=== PATIENT | female | born 1985 | race Caucasian/White ===

== ENCOUNTER 2019-04-10 20:07 | Emergency (ER) | payer OTHER, SELFPAY ==
[2019-04-10 20:16] VITALS: BP 119/78; PULSE 101; RESP 18; TEMP 36.5; O2SAT 94; BMI 36.6
[2019-04-10] MEDS: methylPREDNISolone 125 MG/2 ML VIAL IV (20:16)
[2019-04-10] MEDS: diphenhydrAMINE 50 MG/ML VIAL 25 MG IV (20:16)
[2019-04-10 20:29] VITALS: BP 119/78; PULSE 86; RESP 16; O2SAT 97
--- NOTE | 2019-04-10 20:33 | ED.ALLEREA ---
HPI - Allergic Reaction General Chief complaint: Allergic Reaction Stated complaint: Allergic Reation/swollen mouth and tongue Time Seen by Provider: 04/10/19 20:09 Source: patient Mode of arrival: ambulatory Limitations: no limitations History of Present Illness HPI narrative: Patient comes emergency department complaining of tongue swelling after shrimp exposure. Patient states that she when out to dinner and started eating shrimp and steak about an hour ago, he in about 30 minutes ago, began to notice that her tongue was swelling. She states that she went to the gas station and got some Benadryl, and tried to swallow with Gatorade, but found hard to swallow. Patient was eventually able to get the Benadryl down, and states that the swelling has not worsened since then, but has not improved, either. Patient denies rash or itching. She states she has been told she has an allergy to penicillin, but does not ever remember being exposed to it. She states she has been exposed to shrimp multiple times, and has usually been fine. However, the last time she had shrimp before this, she noticed a slight tingling in her mouth and tongue afterward. However at that time, she did not have any swelling. Related Data Previous Rx's Medication Instructions Recorded epinephrine [EpiPen] 0.3 mg IM Q15M PRN #1 each 04/10/19 prednisone 60 mg PO DAILY #9 tab 04/10/19 Allergies Allergy/AdvReac Type Severity Reaction Status Date / Time Penicillins Allergy Verified 04/10/19 20:16 Review of Systems Review of Systems ROS Unobtainable: All systems reviewed & are unremarkable except as noted in HPI and below Constitutional Constitutional: Denies chills, Denies fatigue, Denies fever(s), Denies frequent falls, Denies lethargy and Denies weakness Eyes Eyes: Denies change in vision, Denies eye discharge, Denies irritation and Denies loss of vision ENT Ears, Nose, Mouth, and Throat: Denies change in voice, Denies dizziness, Denies neck pain, Denies sore throat and Denies throat swelling Comments: Tongue swelling Cardiovascular Cardiovascular: Denies chest pain, Denies irregular heart rhythm, Denies lightheadedness, Denies palpitations, Denies dyspnea, Denies dyspnea on exertion and Denies orthopnea Respiratory Respiratory: Denies cough, Denies dyspnea, Denies dyspnea on exertion and Denies wheezing Gastrointestinal Gastrointestinal: Denies abdominal pain, Denies change in bowel habits, Denies diarrhea, Denies nausea and Denies vomiting Genitourinary Genitourinary: Denies hematuria, Denies flank pain, Denies urinary incontinence and Denies urinary urgency Musculoskeletal Musculoskeletal: Denies back pain, Denies muscle weakness, Denies neck pain, Denies numbness and Denies tingling Integumentary/Breasts Skin/Breast: Denies pruritus, Denies erythema, Denies rash and Denies wounds Neurologic Neurologic: Denies behavioral changes, Denies confusion, Denies dizziness, Denies frequent falls, Denies loss of vision, Denies numbness, Denies tingling and Denies weakness Psychiatric Psychiatric: Denies anxiety, Denies behavioral changes, Denies confusion, Denies depression, Denies homicidal ideation and Denies suicidal ideation Endocrine Endocrine: Denies fatigue, Denies flushing and Denies palpitations Hematologic/Lymphatic Hematologic/Lymphatic: Denies easy bruising Allergic/Immunologic Allergic/Immunologic: Denies urticaria, Denies throat swelling and Denies wheezing [facility] Medical History Healthy adult (Acute) Surgical History No pertinent past surgical history (Acute) Social History Smoking Status: Never smoker Social History Smoking Status: Never smoker Exam Narrative Exam Narrative: Moderate edema of tongue. No facial edema. No pharyngeal edema. Initial Vital Signs Initial Vital Signs: Vital Signs Temperature 97.7 F 04/10/19 20:16 Pulse Rate 101 H 04/10/19 20:16 Respiratory Rate 18 04/10/19 20:16 Blood Pressure 119/78 04/10/19 20:16 Pulse Oximetry 94 04/10/19 20:16 Const General: cooperative and well developed Nutritional Appearance: well nourished Orientation: alert, awake, oriented x3 and not confused HENMT Head: normocephalic and atraumatic Ears: TM's normal bilaterally Nose: external nose normal and No nasal discharge Face and sinus: face symmetric and No dry mucous membranes Mouth: oral mucosae normal and moist mucous membranes Teeth and gingiva: dentition normal Eyes General: appearance normal, both eyes and all related structures Eyelids: eyelids normal Conjunctivae: conjunctivae normal Sclera: sclerae normal Pupils: PERRL EOM: EOM intact bilaterally Neck Neck: normal visual inspection, trachea midline, No lymphadenopathy, No midline deformity and No JVD Lymphatic: No lymphedema Chest Chest: normal inspection of the chest Resp Effort & Inspection: normal respiratory effort, able to speak in complete sentences, no respiratory distress and no use of accessory muscles Auscultation: clear to auscultation bilaterally, no rales, no rhonchi and no wheezes Cardio Rate: regular rate Rhythm: regular rhythm Heart Sounds: no click, no gallops, no murmurs and no rubs Pulses: normal peripheral pulses GI Inspection: non-distended Palpation: soft, no hepatosplenomegaly, No guarding, No pulsatile mass and No tender Auscultation: normal bowel sounds Back/Spine/Pelvis Back: No CVA tenderness Cervical Spine: cervical ROM normal and No pain with cervical ROM Thoracic/Lumbar Spine: thoracic and lumbar spine normal to inspection Skin General: no rashes or lesions noted, No jaundice and No petechiae Other: No urticaria. Neuro General: alert, oriented x3, gait normal and no focal motor deficits Speech: speech normal Extrem General: full ROM, no clubbing, cyanosis or edema, no pedal edema and no calf tenderness Psych Appearance: well kempt Mental Status: mental status grossly normal Attitude: cooperative Thought Content: normal and suicidality Judgment: judgment good Course Course Course Narrative: Patient was evaluated immediately upon arrival in the emergency department. She was given IV Benadryl, Solu-Medrol, Pepcid, and IM epinephrine. Patient remained stable throughout her stay in the emergency department. We have discussed that it would be a good idea for her to carry an EpiPen in her purse, especially if she goes to a restaurant, in case she receives food that has been prepared near shrimp and she has another allergic reaction. I have advised the patient that she should not eat shrimp any longer. We have discussed home management of the symptoms, as well as the usual indications for return. Orders Ordered: Discontinued Medications Diphenhydramine HCl (Benadryl) 25 mg IV NOW ONE Stop: 04/10/19 20:13 Last Admin: 04/10/19 20:16 Dose: 25 mg Documented by: RACHEL Epinephrine HCl (Adrenalin) 0.3 mg IM NOW ONE Stop: 04/10/19 20:29 Last Admin: 04/10/19 20:47 Dose: 0.3 mg Documented by: SADIE Famotidine (Pepcid) 20 mg in 50 mls @ 200 mls/hr IV NOW ONE Stop: 04/10/19 20:44 Last Infusion: 04/10/19 21:09 Dose: 0 mls/hr Documented by: Admin: 04/10/19 20:47 Dose: 200 mls/hr Documented by: SADIE Methylprednisolone (Solu-Medrol 125 Mg Vial) 125 mg IV NOW ONE Stop: 04/10/19 20:13 Last Admin: 04/10/19 20:16 Dose: 125 mg Documented by: RACHEL Vital Signs Vital signs: Vital Signs - 8 hr 04/10/19 20:16 04/10/19 20:29 Temperature 97.7 F Pulse Rate 101 H 86 Respiratory Rate 18 16 Blood Pressure 119/78 Blood Pressure [Right Arm] 119/78 Pulse Oximetry 94 97 MDM - Allergic Reaction Medical Records Attestation: I reviewed the patient's medical records. Discharge Plan Departure Patient Disposition: Home Clinical Impression: Allergic reaction Qualifiers: Encounter type: initial encounter Qualified Code(s): T78.40XA - Allergy, unspecified, initial encounter Discharge Date/Time: 04/10/19 21:32 Instructions: DI for General Allergic Reactions Activity Restrictions/Additional Instructions: It is advisable to avoid anything to which you are allergic. In this case, you should not ever eat shrimp again. It is also good idea to carry an EpiPen in her purse, especially if you go out to eat somewhere, or are at a function where shrimp are served, in case there is any contamination of your food with shrimp products. You may take the Benadryl and steroids for up to 3 days, as needed for allergic symptoms. If you develop worsening swelling of her tongue or of your throat, please return to the emergency department. Prescriptions: New prednisone 20 mg tablet 60 mg PO DAILY Qty: 9 RF: 0 epinephrine [EpiPen] 0.3 mg/0.3 mL auto-injector 0.3 mg IM Q15M PRN (Reason: anaphylaxis) Qty: 1 RF: 0 Referrals: [facility] [Provider Group]
[2019-04-10 20:45] VITALS: BP 136/96; PULSE 77; O2SAT 97
[2019-04-10] MEDS: FAMOTIDINE 20 MG/50 ML PIGGYBACK 200 MG IV (20:47)
[2019-04-10] MEDS: EPINEPHrine 1 MG/ML AMPUL 0.3 MG IM (20:47)
== END 2019-04-10 21:32 | disposition home or self-care (01) ==
PROVIDERS: Emergency Provider Emergency Medicine
DX: T78.40XA Allergy, unspecified, initial encounter (principal)
CPT/HCPCS: 96365; 96372; 96375; 99283; 99284; J0171; J1200; J2930

== ENCOUNTER 2020-04-13 13:57 | Observation (INO) | payer OTHER, SELFPAY ==
[2020-04-13] VITALS (11 sets, daily range): BP systolic 98–144; BP diastolic 42–86; PULSE 72–96; RESP 11–95; TEMP 35.9–36.8; O2SAT 11–99; BMI 37.4
[2020-04-13 14:23] LABS: Add Manual Diff / Slide Review NO; Basophils Absolute Auto 100 /uL (0-100); Basophils Percent Auto 1.1 % (0-2); Eosinophils Absolute Auto 200 /uL (0-450); Eosinophils Percent Auto 2.5 % (2-4); Hematocrit 40.2 % (36-46); Hemoglobin 13.3 g/dL (12.0-16.0); Lymphocytes Absolute Auto 2200 /uL (1100-4500); Lymphocytes Percent Auto 27.5 % (25-40); Mean Corpuscular HGB Conc 33.2 % (30-36); Mean Corpuscular Hemoglobin 27.1 PG (26-34); Mean Corpuscular Volume 81.5 fL (80-100); Monocytes Absolute Auto 600 /uL (0-900); Monocytes Percent Auto 7.3 % (3-14); Neutrophils Absolute Auto 5000 /uL (1500-7000); Neutrophils Percent Auto 61.6 % (50-75); Platelet Count 327 X10^3/uL (150-400); Red Blood Cell Count 4.93 X10^6/uL (4.0-5.2); White Blood Cell Count 8.1 X10^3/uL (4.5-11.0)
[2020-04-13 14:26] LABS: Appearance Urine UA SL CLOUDY; Bilirubin Urine UA NEGATIVE (NEGATIVE); Color Urine UA YELLOW; Glucose Urine UA NEGATIVE (Negative); Ketones Urine UA NEGATIVE (NEGATIVE); Leukocyte Esterase Urine UA NEGATIVE (NEGATIVE); Nitrite Urine UA NEGATIVE (Negative); Occult Blood Urine UA TRACE-LYSED (Negative); Protein Urine UA NEGATIVE (Negative); Specific Gravity Urine UA 1.025 (1.000-1.035); Urobilinogen Urine UA 0.2 E.U./dL (0.2)
[2020-04-13 14:28] LABS: pH Urine UA 6.5 (4.5-8.0)
[2020-04-13 14:32] LABS: INR 0.9 (0.9-1.3); Prothrombin Time 10.8 SECONDS (10.1-12.7)
--- NOTE | 2020-04-13 14:34 | DI.CT.S_ITS ---
PROCEDURE: CT ABDOMEN PELVIS W CON INDICATIONS: periumbelical pain, N/V, hx abd surgeries TECHNIQUE: After the administration of intravenous contrast, 5 mm thick sections acquired from the diaphragm to the symphysis. 5 mm coronal and sagittal reformats were acquired. For radiation dose reduction, the following was used: automated exposure control, adjustment of mA and/or kV according to patient size. COMPARISON: None. FINDINGS: Image quality: Excellent. ABDOMEN: Lung bases: Lung bases are clear. Heart size is normal. Solid organs: Liver is normal in size and enhancement. Gallbladder is surgically absent . Biliary system is non dilated. Pancreas enhances normally. Spleen is normal in size and enhancement. No adrenal nodules. Kidneys demonstrate normal size and enhancement, without hydronephrosis. Peritoneum and bowel: Bowel loops demonstrate normal wall thickness and caliber. No free fluid or air. Appendectomy clips. Nodes and vessels: No retroperitoneal or mesenteric adenopathy by size criteria. Aorta and inferior vena cava are normal in size. Miscellaneous: 45 mm diameter fat containing umbilical hernia which contains mild fat stranding. PELVIS: Genitourinary: Bladder wall thickness is normal. Miscellaneous: No inguinal hernias or adenopathy. Bones: No suspicious bony lesions. No vertebral body compression fractures. IMPRESSION: 1. Fat containing periumbilical hernia which demonstrates evidence of strangulation. Dictated by: Celio Cavazos M.D. on 04/13/2020 at 15:59 Approved by: Celio Cavazos M.D. on 04/13/2020 at 16:01
[2020-04-13 14:35] LABS: PTT Partial Thromboplastin Tim 32 SECONDS (26.4-36.2)
[2020-04-13 14:38] LABS: Alanine Aminotransferase 40 IU/L (<35); Albumin 4.3 g/dL (3.5-5.0); Albumin Globulin Ratio 1.1 (1.0-2.8); Alkaline Phosphatase 80 U/L (38-126); Aspartate Aminotransferase 32 IU/L (14-36); BUN Creatinine Ratio 10.3 (6-22); Bilirubin Total 0.3 mg/dL (0.2-1.3); Blood Urea Nitrogen 10 mg/dL (7-17); Calcium 9.4 mg/dL (8.4-10.2); Carbon Dioxide 30 mmol/L (22-32); Chloride 100 mmol/L (98-107); Estimated Glomerular Filt Rate > 60.0 mL/min (>60); Globulin 3.8 g/dL (1.7-4.1); Glucose 86 mg/dL (70-100); HEMOLYSIS < 15 (0-50); Lipase 143 U/L (23-300); Potassium 4.2 mmol/L (3.4-5.1); Sodium 138 mmol/L (137-145); Total Protein 8.1 g/dL (6.3-8.2)
[2020-04-13 14:42] LABS: RBC Urine 0-1/HPF (0-5/HPF)
--- NOTE | 2020-04-13 14:42 | PC.NURSE ---
pt ambulatory to bathroom to give urine sample
[2020-04-13 14:43] LABS: Bacteria Urine Moderate (10-30); Culture Indicated Urine Cult Not Indicated; Squamous Epithelial Cell Urine 5-10 /HPF (0-5/HPF); WBC Urine 1-5/HPF (0-5/HPF)
--- NOTE | 2020-04-13 14:52 | ED_ITS ---
HPI - Abdominal Pain <HERSON Hickey - Last Filed: 04/13/20 19:34> General Chief Complaint: Abdominal Pain Stated Complaint: thinks ulcer or intenstinal block Time Seen by Provider: 04/13/20 14:01 Source: patient Mode of arrival: Ambulatory Limitations: no limitations History of Present Illness HPI narrative: This is a 34 year female, nonsmoker, who has history of C- section, cholecystectomy, appendectomy, thyroidectomy, upper extremity DVT presents to ED with periumbilical discomfort which started 3 days ago with nausea and vomiting for 1 day. Patient thought she has a stomach virus or ulcer with burning pain and contacted primary care physician's office and was recommended for ER visit for on evaluation for small bowel obstruction. Patient reports she had total 4 episodes of vomiting since yesterday. Pain is constant dull aches and rates as 3/10 with occasionally increasing in pain and radiates to upper abdomen and to the back. Patient reports nausea occurs after eating. She associated is food with aggravating pain. Patient denies fever or chills, or jaundice. Patient reports pain increases also with bending forward and breathing in. patient reports pain improves in position with knees drawn up. patient denies chest pain, short of breath, or syncope. LMP about 1 week ago. Reports has small amount of stools and feels stomach feels bloated. Related Data Previous Rx's Medication Instructions Recorded epinephrine [EpiPen] 0.3 mg IM Q15M PRN #1 each 04/10/19 prednisone 60 mg PO DAILY #9 tab 04/10/19 docusate sodium 100 mg PO BID #20 cap 04/14/20 hydrocodone-acetaminophen 1 tab PO Q4-6H PRN #30 tab 04/14/20 ondansetron HCl [Zofran] 8 mg PO Q8H PRN #5 tab 04/14/20 oxycodone-acetaminophen [Percocet] See Rx Instructions .ROUTE 04/14/20 .COMPLEX PRN #14 tab Allergies Allergy/AdvReac Type Severity Reaction Status Date / Time morphine Allergy Mild itching Verified 04/13/20 18:30 Penicillins Allergy Verified 04/13/20 14:13 shellfish derived Allergy Verified 04/13/20 14:13 Review of Systems <HERSON Hickey - Last Filed: 04/13/20 19:34> Review of Systems Narrative: General: Denies fever, chills, fatigue, malaise, sweats. HEENT: Denies sinus pain, ear pain, sore throat, difficulty swallowing, dizziness. Respiratory: Denies dyspnea, cough, wheezing, hemoptysis, sputum. Cardiovascular: Denies chest pain, palpitations, orthopnea, edema. Gastrointestinal: See HPI : Decreased urine output. Denies dysuria, frequency, incontinence, hematuria, urinary retention. Musculoskeletal: Denies weakness, joint pain or bony pain. Reports right flank pain. Skin: Denies rash, skin lesions, or other. Neurologic: Denies weakness, headache, numbness, change in speech, confusion, seizures, incoordination. Psychiatric: No concerning psychosocial issues. 12-point review of systems is negative except for those stated above. Patient History <Jimmy Silverio [facility] - Last Filed: 04/13/20 19:34> Surgical History H/O thyroidectomy (Acute) History of (Acute) History of cholecystectomy (Acute) S/P appendectomy (Acute) Social History household members: family Smoking Status: Never smoker Smoking Status: Never smoker alcohol intake frequency: holidays/special occasions only Substance Use Type: does not use Exam <Jimmy Silverio [facility] - Last Filed: 04/13/20 19:34> Narrative Exam Narrative: GEN: Alert, oriented x 3, well appearing and nourished, and in no acute distress. Head: Normal cephalic, atraumatic. No scalp or temporal tenderness, palpable mass or rash. EYES: Pupils are equal, round, and reactive to light and accommodation. Extraocular muscles are intact bilaterally. There is no subconjunctival hemorrhage, exudate and sclera non-icteric. ENT: Hearing grossly intact. Mucous membrane moist, no mucosal lesion. Throat without erythema, tonsillar hypertrophy or exudate. Uvula in midline, airway patent. Neck: Trachea in midline. No JVD, non-tender without lymphadenopathy. No masses or thyroid megaly. Supple, non-tender and no meningeal signs. CARDIAC: Normal regular rate and rhythm without murmurs, gallops, or rubs. No chest wall tenderness. No peripheral edema, cyanosis or pallor. Capillary refill is less than 2 seconds. RESPIRATORY: Lungs are clear to auscultate bilaterally. No cough, wheezes, rales, or rhonchi. No stridor, respiratory distress, increase work of breathing, or accessary muscle used. ABD: Abdomen soft and non-distended. Right mid abdominal pain next to right side umbilicus to palpate. Resting with knees flexed to help with pain. Bowel sounds are normal in all 4 quadrants. There is no palpable masses or organomegaly. EXT: Full painless ROM of all extremities with no loss of sensation, strength, effusion or edema. SKIN: Warm, dry, normal color for patient. No erythema, lesions or rash over visible areas. BACK: Nontender without deformity or crepitance. Right flank tenderness to palpate. NEUROLOGICAL: Alert and oriented to place, time and person. Sensation and motor function intact bilaterally. No facial droops, dysphasia. PSYCHIATRIC: Good judgement and reason, without hallucinations, abnormal affect or abnormal behaviors during the examination. Patient is not suicidal. Initial Vital Signs Initial Vital Signs: Vital Signs Temperature 98.2 F 04/13/20 14:00 Pulse Rate 88 04/13/20 14:00 Respiratory Rate 15 04/13/20 14:00 Blood Pressure 138/86 04/13/20 14:00 Pulse Oximetry 97 04/13/20 14:00 <Sharyn Arellano DO - Last Filed: 04/15/20 08:29> Initial Vital Signs Initial Vital Signs: Vital Signs Temperature 98.2 F 04/13/20 14:00 Pulse Rate 88 04/13/20 14:00 Respiratory Rate 15 04/13/20 14:00 Blood Pressure 138/86 04/13/20 14:00 Pulse Oximetry 97 04/13/20 14:00 Scores <HERSON Hickey - Last Filed: 04/13/20 19:34> GCS Juan coma scale eye opening: Spontaneous [place] coma scale verbal response: Orientated [place] coma scale motor response: Obey commands Juan coma scale total score: 15 qSOFA Altered Mental Status (GCS <15): No Respiratory rate greater than/equal to 22: No Systolic blood pressure less than or equal to 100: No qSOFA Total: 0 0-1 Not High Risk 1-3 High risk Course <HERSON Hickey - Last Filed: 04/13/20 19:34> Orders Ordered: Discontinued Medications Acetaminophen (Tylenol) 975 mg PO PACUNOW PRN PRN Reason: Pain, Mild (1-3) Acetaminophen (Tylenol) 650 mg PO Q6HR PRN PRN Reason: Pain, Mild (1-3) Bupivacaine HCl/Epinephrine Bitart (Sensorcaine 0.25% W/ Epi (Pf)) 60 ml INJ NOW ONE Stop: 04/13/20 20:19 Last Admin: 04/13/20 20:18 Dose: 50 ml Documented by: NEISHA Bupivacaine Liposome (Exparel) 266 mg INJ NOW ONE Stop: 04/13/20 20:18 Last Admin: 04/13/20 20:18 Dose: 266 mg Documented by: NEISHA Diphenhydramine HCl (Benadryl) 25 mg IV NOW ONE Stop: 04/13/20 18:30 Last Admin: 04/13/20 18:37 Dose: 25 mg Documented by: YEN Diphenhydramine HCl (Benadryl) 25 mg IV Q6HR PRN PRN Reason: Itching Docusate Sodium (Colace) 100 mg PO BID PRN PRN Reason: Constipation Last Admin: 04/14/20 05:40 Dose: 100 mg Documented by: GWEN Enoxaparin Sodium (Lovenox) 40 mg SUBCUT DAILY FLAQUITA Last Admin: 04/14/20 08:58 Dose: 40 mg Documented by: DARLENE Fentanyl (Sublimaze) 0 mcg IV Q5MIN PRN PRN Reason: Pain, Severe (7-10) Haloperidol (Haldol) 1 mg IV Q15MIN PRN PRN Reason: Nausea Last Admin: 04/13/20 21:38 Dose: 1 mg Documented by: VICTORIA Hydromorphone HCl (Dilaudid) 0 mg IV Q5MIN PRN PRN Reason: Pain, Mild (1-3) Last Admin: 04/13/20 21:39 Dose: 0.5 mg Documented by: Admin: 04/13/20 21:31 Dose: 0.5 mg Documented by: VICTORIA Hydromorphone HCl (Dilaudid) 0.5 mg IV Q4HR PRN PRN Reason: Pain, Severe (7-10) Last Admin: 04/14/20 04:09 Dose: 0.5 mg Documented by: GWEN Sodium Chloride (Normal Saline 0.9%) 1,000 mls @ 1,000 mls/hr IV BOLUS ONE Stop: 04/13/20 16:05 Last Infusion: 04/13/20 17:26 Dose: 0 mls/hr Documented by: Infusion: 04/13/20 16:09 Dose: 1,000 mls/hr Documented by: Admin: 04/13/20 15:16 Dose: 1,000 mls/hr Documented by: YEN Sodium Chloride (Normal Saline 0.9%) 1,000 mls @ 125 mls/hr IV CONT FLAQUITA Last Admin: 04/13/20 18:01 Dose: 125 mls/hr Documented by: YEN Lactated Ringer's (Lactated Ringers) 1,000 mls @ 42 mls/hr IV CONT FLAQUITA Last Infusion: 04/13/20 22:13 Dose: 42 mls/hr Documented by: Admin: 04/13/20 21:34 Dose: 42 mls/hr Documented by: Infusion: 04/13/20 21:34 Dose: 42 mls/hr Documented by: Admin: 04/13/20 19:42 Dose: 42 mls/hr Documented by: VICTORIA Cefazolin Sodium/Dextrose (Ancef) 2 gm in 100 mls @ 200 mls/hr IV INTRA-OP ONE Stop: 04/13/20 19:58 Last Infusion: 04/13/20 20:08 Dose: 0 mls/hr Documented by: Admin: 04/13/20 19:58 Dose: 200 mls/hr Documented by: COLLEEN Lactated Ringer's (Lactated Ringers) 1,000 mls @ 120 mls/hr IV CONT FLAQUITA Last Admin: 04/14/20 07:18 Dose: Not Given Documented by: TYL Ketorolac Tromethamine (Toradol) 15 mg IV NOW ONE Stop: 04/13/20 15:07 Last Admin: 04/13/20 15:16 Dose: 15 mg Documented by: YEN Ketorolac Tromethamine (Toradol) 15 mg IV Q6H PRN PRN Reason: Pain, Moderate (4-6) Stop: 04/18/20 21:23 Last Admin: 04/14/20 07:50 Dose: 15 mg Documented by: Admin: 04/14/20 00:04 Dose: 15 mg Documented by: GWEN Lorazepam (Ativan) 0.25 mg IV NOW PRN PRN Reason: Anxiety Meperidine HCl (Demerol) 12.5 mg IV PACUNOW PRN PRN Reason: Mild pain or shivering Last Admin: 04/13/20 21:43 Dose: 12.5 mg Documented by: VICTORIA Morphine Sulfate (Morphine) 4 mg IV NOW ONE Stop: 04/13/20 16:14 Last Admin: 04/13/20 16:39 Dose: 4 mg Documented by: YEN Morphine Sulfate (Morphine) 4 mg IV NOW ONE Stop: 04/13/20 17:53 Last Admin: 04/13/20 18:01 Dose: 4 mg Documented by: YEN Naloxone HCl (Narcan) 0.2 mg IV Q2MIN PRN PRN Reason: Opiate Reversal Ondansetron HCl (Zofran) 4 mg IV NOW ONE Stop: 04/13/20 16:14 Last Admin: 04/13/20 16:38 Dose: 4 mg Documented by: YEN Ondansetron HCl (Zofran) 4 mg IV NOW PRN PRN Reason: Nausea And Vomiting Last Admin: 04/13/20 21:31 Dose: 4 mg Documented by: VICTORIA Ondansetron HCl (Zofran) 4 mg IV Q4HR PRN PRN Reason: Nausea And Vomiting Last Admin: 04/14/20 08:58 Dose: 4 mg Documented by: DARLENE Oxycodone HCl (Percolone) 5 mg PO PACUNOW PRN PRN Reason: Mild or moderate pain Oxycodone HCl (Percolone) 5 mg PO Q6HR PRN PRN Reason: Pain, Moderate (4-6) Last Admin: 04/14/20 10:36 Dose: 5 mg Documented by: Admin: 04/14/20 07:48 Dose: 5 mg Documented by: Admin: 04/14/20 03:34 Dose: 5 mg Documented by: GWEN Pantoprazole Sodium (Protonix) 40 mg IV NOW ONE Stop: 04/13/20 14:21 Last Admin: 04/13/20 15:15 Dose: 40 mg Documented by: YEN Scopolamine (Transderm-Scop) 1 patch TOP NOW ONE Stop: 04/13/20 19:20 Last Admin: 04/13/20 19:42 Dose: 1 patch Documented by: VICTORIA Reevaluation(s) Reevaluation #1: The patient reports pain improved after the morphine Time: 17:39 Reevaluation #2: Medicating with 2nd dose morphine for recurring pain. Informed the patient about Dr. Cary in OR and will evaluate patient as soon as the case is over and she verbalized the understanding. Time: 17:53 Reevaluation #3: patient reports itching after the morphine. Updated allergy list reflecting this. No dyspnea or oropharyngeal swelling. Medicated the patient with Benadryl. Time: 18:35 Consultations Consultation #1: Consulted Dr. Cary with CT findings-Fat containing periumbelical hernia and abdominal pain. Received a call from OR informing that Dr. Cary in OR case at this time and not will be completed for another 2 +hrs. Time: 16:36 Consultation #2: Dr. Arellano attempted to reduce the hernia but unable to feel the mass or to reduce. Time: 16:44 Vital Signs Vital signs: Vital Signs - 8 hr 04/13/20 14:00 Temperature 98.2 F Pulse Rate 88 Respiratory Rate 15 Blood Pressure 138/86 Pulse Oximetry 97 <Sharny Arellano, DO - Last Filed: 04/15/20 08:29> Orders Ordered: Discontinued Medications Acetaminophen (Tylenol) 975 mg PO PACUNOW PRN PRN Reason: Pain, Mild (1-3) Acetaminophen (Tylenol) 650 mg PO Q6HR PRN PRN Reason: Pain, Mild (1-3) Bupivacaine HCl/Epinephrine Bitart (Sensorcaine 0.25% W/ Epi (Pf)) 60 ml INJ NOW ONE Stop: 04/13/20 20:19 Last Admin: 04/13/20 20:18 Dose: 50 ml Documented by: NEISHA Bupivacaine Liposome (Exparel) 266 mg INJ NOW ONE Stop: 04/13/20 20:18 Last Admin: 04/13/20 20:18 Dose: 266 mg Documented by: NEISHA Diphenhydramine HCl (Benadryl) 25 mg IV NOW ONE Stop: 04/13/20 18:30 Last Admin: 04/13/20 18:37 Dose: 25 mg Documented by: YEN Diphenhydramine HCl (Benadryl) 25 mg IV Q6HR PRN PRN Reason: Itching Docusate Sodium (Colace) 100 mg PO BID PRN PRN Reason: Constipation Last Admin: 04/14/20 05:40 Dose: 100 mg Documented by: GWEN Enoxaparin Sodium (Lovenox) 40 mg SUBCUT DAILY [facility] Last Admin: 04/14/20 08:58 Dose: 40 mg Documented by: DARLENE Fentanyl (Sublimaze) 0 mcg IV Q5MIN PRN PRN Reason: Pain, Severe (7-10) Haloperidol (Haldol) 1 mg IV Q15MIN PRN PRN Reason: Nausea Last Admin: 04/13/20 21:38 Dose: 1 mg Documented by: VICTORIA Hydromorphone HCl (Dilaudid) 0 mg IV Q5MIN PRN PRN Reason: Pain, Mild (1-3) Last Admin: 04/13/20 21:39 Dose: 0.5 mg Documented by: Admin: 04/13/20 21:31 Dose: 0.5 mg Documented by: VICTORIA Hydromorphone HCl (Dilaudid) 0.5 mg IV Q4HR PRN PRN Reason: Pain, Severe (7-10) Last Admin: 04/14/20 04:09 Dose: 0.5 mg Documented by: GWEN Sodium Chloride (Normal Saline 0.9%) 1,000 mls @ 1,000 mls/hr IV BOLUS ONE Stop: 04/13/20 16:05 Last Infusion: 04/13/20 17:26 Dose: 0 mls/hr Documented by: Infusion: 04/13/20 16:09 Dose: 1,000 mls/hr Documented by: Admin: 04/13/20 15:16 Dose: 1,000 mls/hr Documented by: YEN Sodium Chloride (Normal Saline 0.9%) 1,000 mls @ 125 mls/hr IV CONT FLAQUITA Last Admin: 04/13/20 18:01 Dose: 125 mls/hr Documented by: YEN Lactated Ringer's (Lactated Ringers) 1,000 mls @ 42 mls/hr IV CONT [facility] Last Infusion: 04/13/20 22:13 Dose: 42 mls/hr Documented by: Admin: 04/13/20 21:34 Dose: 42 mls/hr Documented by: Infusion: 04/13/20 21:34 Dose: 42 mls/hr Documented by: Admin: 04/13/20 19:42 Dose: 42 mls/hr Documented by: VICTORIA Cefazolin Sodium/Dextrose (Ancef) 2 gm in 100 mls @ 200 mls/hr IV INTRA-OP ONE Stop: 04/13/20 19:58 Last Infusion: 04/13/20 20:08 Dose: 0 mls/hr Documented by: Admin: 04/13/20 19:58 Dose: 200 mls/hr Documented by: COLLEEN Lactated Ringer's (Lactated Ringers) 1,000 mls @ 120 mls/hr IV CONT [facility] Last Admin: 04/14/20 07:18 Dose: Not Given Documented by: DARLENE Ketorolac Tromethamine (Toradol) 15 mg IV NOW ONE Stop: 04/13/20 15:07 Last Admin: 04/13/20 15:16 Dose: 15 mg Documented by: YEN Ketorolac Tromethamine (Toradol) 15 mg IV Q6H PRN PRN Reason: Pain, Moderate (4-6) Stop: 04/18/20 21:23 Last Admin: 04/14/20 07:50 Dose: 15 mg Documented by: Admin: 04/14/20 00:04 Dose: 15 mg Documented by: GWEN Lorazepam (Ativan) 0.25 mg IV NOW PRN PRN Reason: Anxiety Meperidine HCl (Demerol) 12.5 mg IV PACUNOW PRN PRN Reason: Mild pain or shivering Last Admin: 04/13/20 21:43 Dose: 12.5 mg Documented by: VICTORIA Morphine Sulfate (Morphine) 4 mg IV NOW ONE Stop: 04/13/20 16:14 Last Admin: 04/13/20 16:39 Dose: 4 mg Documented by: YEN Morphine Sulfate (Morphine) 4 mg IV NOW ONE Stop: 04/13/20 17:53 Last Admin: 04/13/20 18:01 Dose: 4 mg Documented by: YEN Naloxone HCl (Narcan) 0.2 mg IV Q2MIN PRN PRN Reason: Opiate Reversal Ondansetron HCl (Zofran) 4 mg IV NOW ONE Stop: 04/13/20 16:14 Last Admin: 04/13/20 16:38 Dose: 4 mg Documented by: YEN Ondansetron HCl (Zofran) 4 mg IV NOW PRN PRN Reason: Nausea And Vomiting Last Admin: 04/13/20 21:31 Dose: 4 mg Documented by: VICTORIA Ondansetron HCl (Zofran) 4 mg IV Q4HR PRN PRN Reason: Nausea And Vomiting Last Admin: 04/14/20 08:58 Dose: 4 mg Documented by: DARLENE Oxycodone HCl (Percolone) 5 mg PO PACUNOW PRN PRN Reason: Mild or moderate pain Oxycodone HCl (Percolone) 5 mg PO Q6HR PRN PRN Reason: Pain, Moderate (4-6) Last Admin: 04/14/20 10:36 Dose: 5 mg Documented by: Admin: 04/14/20 07:48 Dose: 5 mg Documented by: Admin: 04/14/20 03:34 Dose: 5 mg Documented by: GWEN Pantoprazole Sodium (Protonix) 40 mg IV NOW ONE Stop: 04/13/20 14:21 Last Admin: 04/13/20 15:15 Dose: 40 mg Documented by: YEN Scopolamine (Transderm-Scop) 1 patch TOP NOW ONE Stop: 04/13/20 19:20 Last Admin: 04/13/20 19:42 Dose: 1 patch Documented by: VICTORIA Vital Signs Vital signs: Vital Signs - 8 hr 04/13/20 14:00 Temperature 98.2 F Pulse Rate 88 Respiratory Rate 15 Blood Pressure 138/86 Pulse Oximetry 97 MDM - Abdominal Pain <Jimmy HERSON Silverio - Last Filed: 04/13/20 19:34> Differential Diagnosis Differential diagnosis: Likely abdominal pain, calculus of kidney, diverticulitis, gastroenteritis, small bowel obstruction and other (Abdo skinny/mesentery adenopathy, hernia) Medical Records Attestation: I reviewed the patient's medical records. Lab Data Attestation: I reviewed the patient's lab results. Result diagrams: 04/13/20 14:17 04/13/20 14:17 Labs: Lab Results 04/13/20 04/13/20 04/13/20 Range/Units 14:01 14:17 14:17 WBC 8.1 (4.5-11.0) X10^3/uL RBC 4.93 (4.0-5.2) X10^6/uL Hgb 13.3 (12.0-16.0) g/dL Hct 40.2 (36-46) % MCV 81.5 (80-100) fL MCH 27.1 (26-34) PG MCHC 33.2 (30-36) % RDW 14.0 (11.6-14.8) % Plt Count 327 (150-400) X10^3/uL Neut % (Auto) 61.6 (50-75) % Lymph % (Auto) 27.5 (25-40) % [place] % (Auto) 7.3 (3-14) % Eos % (Auto) 2.5 (2-4) % Baso % (Auto) 1.1 (0-2) % Neut # (Auto) 5000 (3692-6347) /uL Lymph # (Auto) 2200 (0086-2745) /uL [place] # (Auto) 600 (0-900) /uL Eos # (Auto) 200 (0-450) /uL Baso # (Auto) 100 (0-100) /uL PT 10.8 (10.1-12.7) SECONDS INR 0.9 (0.9-1.3) APTT 32 (26.4-36.2) SECONDS Sodium (137-145) mmol/L Potassium (3.4-5.1) mmol/L Chloride (98-107) mmol/L Carbon Dioxide (22-32) mmol/L BUN (7-17) mg/dL Creatinine (0.52-1.04) mg/dL Estimated GFR (>60) mL/min BUN/Creatinine Ratio (6-22) Glucose (70-100) mg/dL Lactate (0.7-2.1) mmol/L Calcium (8.4-10.2) mg/dL Total Bilirubin (0.2-1.3) mg/dL AST (14-36) IU/L ALT (<35) IU/L Alkaline Phosphatase (38-126) U/L Total Protein (6.3-8.2) g/dL Albumin (3.5-5.0) g/dL Globulin (1.7-4.1) g/dL Albumin/Globulin Ratio (1.0-2.8) Lipase (23-300) U/L Urine Color Yellow Urine Appearance Sl cloudy Urine pH 6.5 (4.5-8.0) Ur Specific [place] 1.025 (1.000-1.035) Urine Protein Negative (Negative) Urine Glucose (UA) Negative (Negative) g/dL Urine Ketones Negative (NEGATIVE) Urine Occult Blood Trace-lysed (Negative) Urine Nitrate Negative (Negative) Urine Bilirubin Negative (NEGATIVE) Urine Urobilinogen 0.2 (0.2) E.U./dL Ur Leukocyte Esterase Negative (NEGATIVE) Urine RBC 0-1/hpf (0-5/HPF) Urine WBC 1-5/hpf (0-5/HPF) Ur Squamous Epith Cells 5-10 /hpf H (0-5/HPF) Urine Bacteria Moderate (10-30) H (None) Ur Culture Indicated? Cult not indicated COVID-19 PCR (Negative) 04/13/20 04/13/20 04/13/20 Range/Units 14:17 14:17 16:47 WBC (4.5-11.0) X10^3/uL RBC (4.0-5.2) X10^6/uL Hgb (12.0-16.0) g/dL Hct (36-46) % MCV (80-100) fL MCH (26-34) PG MCHC (30-36) % RDW (11.6-14.8) % Plt Count (150-400) X10^3/uL Neut % (Auto) (50-75) % Lymph % (Auto) (25-40) % [place] % (Auto) (3-14) % Eos % (Auto) (2-4) % Baso % (Auto) (0-2) % Neut # (Auto) (6330-3240) /uL Lymph # (Auto) (1415-9735) /uL [place] # (Auto) (0-900) /uL Eos # (Auto) (0-450) /uL Baso # (Auto) (0-100) /uL PT (10.1-12.7) SECONDS INR (0.9-1.3) APTT (26.4-36.2) SECONDS Sodium 138 (137-145) mmol/L Potassium 4.2 (3.4-5.1) mmol/L Chloride 100 (98-107) mmol/L Carbon Dioxide 30 (22-32) mmol/L BUN 10 (7-17) mg/dL Creatinine 0.97 (0.52-1.04) mg/dL Estimated GFR > 60.0 (>60) mL/min BUN/Creatinine Ratio 10.3 (6-22) Glucose 86 (70-100) mg/dL Lactate 0.8 (0.7-2.1) mmol/L Calcium 9.4 (8.4-10.2) mg/dL Total Bilirubin 0.3 (0.2-1.3) mg/dL AST 32 (14-36) IU/L ALT 40 H (<35) IU/L Alkaline Phosphatase 80 (38-126) U/L Total Protein 8.1 (6.3-8.2) g/dL Albumin 4.3 (3.5-5.0) g/dL Globulin 3.8 (1.7-4.1) g/dL Albumin/Globulin Ratio 1.1 (1.0-2.8) Lipase 143 (23-300) U/L Urine Color Urine Appearance Urine pH (4.5-8.0) Ur Specific [place] (1.000-1.035) Urine Protein (Negative) Urine Glucose (UA) (Negative) g/dL Urine Ketones (NEGATIVE) Urine Occult Blood (Negative) Urine Nitrate (Negative) Urine Bilirubin (NEGATIVE) Urine Urobilinogen (0.2) E.U./dL Ur Leukocyte Esterase (NEGATIVE) Urine RBC (0-5/HPF) Urine WBC (0-5/HPF) Ur Squamous Epith Cells (0-5/HPF) Urine Bacteria (None) Ur Culture Indicated? COVID-19 PCR Negative (Negative) Point of care testing: Point of Care Testing Test Results Negative Imaging Data CT scan - abdomen/pelvis: Radiologist's Impression: [address] [place] [address] CT Scan Report Signed Patient: ShaileshDeanaMR#: [id number] : 1985Acct:[id number] Age/Sex: 34 / FDate of Service: 04/13/20 Loc: ED Accession Number: [id number] Procedure: CT abdomen pelvis w con Ordering Provider: Jimmy Silverio PROCEDURE: CT ABDOMEN PELVIS W CON INDICATIONS: periumbelical pain, N/V, hx abd surgeries TECHNIQUE: After the administration of intravenous contrast, 5 mm thick sections acquired from the diaphragm to the symphysis. 5 mm coronal and sagittal reformats were acquired. For radiation dose reduction, the following was used: automated exposure control, adjustment of mA and/or kV according to patient size. COMPARISON: None. FINDINGS: Image quality: Excellent. ABDOMEN: Lung bases: Lung bases are clear. Heart size is normal. Solid organs: Liver is normal in size and enhancement. Gallbladder is surgically absent . Biliary system is non dilated. Pancreas enhances normally. Spleen is normal in size and enhancement. No adrenal nodules. Kidneys demonstrate normal size and enhancement, without hydronephrosis. Peritoneum and bowel: Bowel loops demonstrate normal wall thickness and caliber. No free fluid or air. Appendectomy clips. Nodes and vessels: No retroperitoneal or mesenteric adenopathy by size criteria. Aorta and inferior vena cava are normal in size. Miscellaneous: 45 mm diameter fat containing umbilical hernia which contains mild fat stranding. PELVIS: Genitourinary: Bladder wall thickness is normal. Miscellaneous: No inguinal hernias or adenopathy. Bones: No suspicious bony lesions. No vertebral body compression fractures. IMPRESSION: 1. Fat containing periumbilical hernia which demonstrates evidence of strangulation. Dictated by: Celio Cavazos M.D. on 04/13/2020 at 15:59 Approved by: Celio Cavazos M.D. on 04/13/2020 at 16:01 ECG Data Attestation: I personally reviewed and interpreted this ECG as follows: Prior ECG tracings: not available for review Interpretation: Sinus rhythm at 94. Left dominant axis. Pr interval 146, QRS duration 70, QT/QTC 356/445. No acute ST changes MDM Narrative Medical decision making narrative: This is a 34 year female who presents to ED with localized right-sided abdominal pain next to umbilicus last 3 days with nausea and vomiting which started yesterday. Patient has several abdominal surgeries in 2017 including appendectomy, , cholecystectomy. Patient denies fever or chills. Physical exam was unremarkable. Urine test was negative. No indication for UTI with negative urine nitrate or urine leukoesterase. No leukocytosis. Normal lipase, chemistry, and lactate. Abdominal CT test shows 45mm diameter fat containing umbilical hernia which contains mild fat and evidence of strangulation. Patient was medicated with IV fluid, Protonix, Toradol, Morphine, Zofran. Patient developed itching after 2nd dose of morphine and treated with Benadryl. Dr. Cary consulted with CT findings and for possible surgical case. Dr. Arellano consulted as well and the patient was assessed at bedside but was unable to detect mass or to reduce hernia. Dr. Cary kindly accepted the patient's care for surgery to reduce the hernia. <Sharyn Arellano, DO - Last Filed: 04/15/20 08:29> Lab Data Labs: Lab Results 04/13/20 04/13/20 04/13/20 Range/Units 14:01 14:17 14:17 WBC 8.1 (4.5-11.0) X10^3/uL RBC 4.93 (4.0-5.2) X10^6/uL Hgb 13.3 (12.0-16.0) g/dL Hct 40.2 (36-46) % MCV 81.5 (80-100) fL MCH 27.1 (26-34) PG MCHC 33.2 (30-36) % RDW 14.0 (11.6-14.8) % Plt Count 327 (150-400) X10^3/uL Neut % (Auto) 61.6 (50-75) % Lymph % (Auto) 27.5 (25-40) % [place] % (Auto) 7.3 (3-14) % Eos % (Auto) 2.5 (2-4) % Baso % (Auto) 1.1 (0-2) % Neut # (Auto) 5000 (8377-5253) /uL Lymph # (Auto) 2200 (4977-1293) /uL [place] # (Auto) 600 (0-900) /uL Eos # (Auto) 200 (0-450) /uL Baso # (Auto) 100 (0-100) /uL PT 10.8 (10.1-12.7) SECONDS INR 0.9 (0.9-1.3) APTT 32 (26.4-36.2) SECONDS Sodium (137-145) mmol/L Potassium (3.4-5.1) mmol/L Chloride (98-107) mmol/L Carbon Dioxide (22-32) mmol/L BUN (7-17) mg/dL Creatinine (0.52-1.04) mg/dL Estimated GFR (>60) mL/min BUN/Creatinine Ratio (6-22) Glucose (70-100) mg/dL Lactate (0.7-2.1) mmol/L Calcium (8.4-10.2) mg/dL Total Bilirubin (0.2-1.3) mg/dL AST (14-36) IU/L ALT (<35) IU/L Alkaline Phosphatase (38-126) U/L Total Protein (6.3-8.2) g/dL Albumin (3.5-5.0) g/dL Globulin (1.7-4.1) g/dL Albumin/Globulin Ratio (1.0-2.8) Lipase (23-300) U/L Urine Color Yellow Urine Appearance Sl cloudy Urine pH 6.5 (4.5-8.0) Ur Specific [place] 1.025 (1.000-1.035) Urine Protein Negative (Negative) Urine Glucose (UA) Negative (Negative) g/dL Urine Ketones Negative (NEGATIVE) Urine Occult Blood Trace-lysed (Negative) Urine Nitrate Negative (Negative) Urine Bilirubin Negative (NEGATIVE) Urine Urobilinogen 0.2 (0.2) E.U./dL Ur Leukocyte Esterase Negative (NEGATIVE) Urine RBC 0-1/hpf (0-5/HPF) Urine WBC 1-5/hpf (0-5/HPF) Ur Squamous Epith Cells 5-10 /hpf H (0-5/HPF) Urine Bacteria Moderate (10-30) H (None) Ur Culture Indicated? Cult not indicated COVID-19 PCR (Negative) 04/13/20 04/13/20 04/13/20 Range/Units 14:17 14:17 16:47 WBC (4.5-11.0) X10^3/uL RBC (4.0-5.2) X10^6/uL Hgb (12.0-16.0) g/dL Hct (36-46) % MCV (80-100) fL MCH (26-34) PG MCHC (30-36) % RDW (11.6-14.8) % Plt Count (150-400) X10^3/uL Neut % (Auto) (50-75) % Lymph % (Auto) (25-40) % [place] % (Auto) (3-14) % Eos % (Auto) (2-4) % Baso % (Auto) (0-2) % Neut # (Auto) (3812-1040) /uL Lymph # (Auto) (7964-8020) /uL [place] # (Auto) (0-900) /uL Eos # (Auto) (0-450) /uL Baso # (Auto) (0-100) /uL PT (10.1-12.7) SECONDS INR (0.9-1.3) APTT (26.4-36.2) SECONDS Sodium 138 (137-145) mmol/L Potassium 4.2 (3.4-5.1) mmol/L Chloride 100 (98-107) mmol/L Carbon Dioxide 30 (22-32) mmol/L BUN 10 (7-17) mg/dL Creatinine 0.97 (0.52-1.04) mg/dL Estimated GFR > 60.0 (>60) mL/min BUN/Creatinine Ratio 10.3 (6-22) Glucose 86 (70-100) mg/dL Lactate 0.8 (0.7-2.1) mmol/L Calcium 9.4 (8.4-10.2) mg/dL Total Bilirubin 0.3 (0.2-1.3) mg/dL AST 32 (14-36) IU/L ALT 40 H (<35) IU/L Alkaline Phosphatase 80 (38-126) U/L Total Protein 8.1 (6.3-8.2) g/dL Albumin 4.3 (3.5-5.0) g/dL Globulin 3.8 (1.7-4.1) g/dL Albumin/Globulin Ratio 1.1 (1.0-2.8) Lipase 143 (23-300) U/L Urine Color Urine Appearance Urine pH (4.5-8.0) Ur Specific [place] (1.000-1.035) Urine Protein (Negative) Urine Glucose (UA) (Negative) g/dL Urine Ketones (NEGATIVE) Urine Occult Blood (Negative) Urine Nitrate (Negative) Urine Bilirubin (NEGATIVE) Urine Urobilinogen (0.2) E.U./dL Ur Leukocyte Esterase (NEGATIVE) Urine RBC (0-5/HPF) Urine WBC (0-5/HPF) Ur Squamous Epith Cells (0-5/HPF) Urine Bacteria (None) Ur Culture Indicated? COVID-19 PCR Negative (Negative) Point of care testing: Point of Care Testing Test Results Negative Discharge Plan Departure Patient Disposition: Admitted to Surgery Clinical Impression: Periumbilical hernia Abdominal pain Qualifiers: Abdominal location: right upper quadrant Qualified Code(s): R10.11 - Right upper quadrant pain Discharge Date/Time: 04/13/20 19:37 Admit Date/Time: 04/13/20 19:13 Admit Provider: Sylvie Cary <Sharyn Arellano DO - Last Filed: 04/15/20 08:29> Cosign ED Attending Cosignature Attestation: I was immediately available in the department for consultation. Documentation has been reviewed. I agree with assessment and plan.
[2020-04-13] MEDS: PANTOPRAZOLE 40 MG VIAL IV (15:15)
[2020-04-13] MEDS: SODIUM CHLORIDE 0.9% 1,000 ML 1000 ML IV (15:16)
[2020-04-13] MEDS: KETOROLAC 60 MG/2 ML VIAL 15 MG IV (15:16)
--- NOTE | 2020-04-13 15:16 | PC.NURSE ---
pt medicated as per mdo
[2020-04-13 15:46] LABS: Lactate (Lactic Acid) 0.8 mmol/L (0.7-2.1)
[2020-04-13] MEDS: ONDANSETRON 4 MG/2 ML INJ IV ×2 (16:38→21:31)
[2020-04-13] MEDS: MORPHINE 4 MG/ML INJ IV ×2 (16:39→18:01)
[2020-04-13 17:10] LABS: COVID19 -Nasal RAPID Negative (Negative)
--- NOTE | 2020-04-13 17:35 | PC.NURSE ---
pt back from ct placed back on cafeteria monitor family at bedside
[2020-04-13] MEDS: SODIUM CHLORIDE 0.9% 1,000 ML 125 ML IV (18:01)
[2020-04-13] MEDS: diphenhydrAMINE 50 MG/ML VIAL 25 MG IV (18:37)
--- NOTE | 2020-04-13 18:52 | PC.NURSE ---
pt resting in bed ivf infusing pt provided with belongings bag to change into
--- NOTE | 2020-04-13 19:12 | PM.HP.1 ---
History of Present Illness History of Present Illness Date Patient Seen: 04/13/20 Time Patient Seen: 19:12 Chief complaint: thinks ulcer or intenstinal block Narrative: This is a 34-year-old woman with a history of morbid obesity, anxiety, and recent history of an appendectomy, cholecystectomy, and thyroid surgery in the past year. She has had a 3 day history of supraumbilical pain, with nausea and vomiting. In the ER she had a CT scan which shows an incarcerated hernia which has strangulated fat within it. ROS:General: Denies fever, chills, fatigue, malaise, sweats. HEENT: Denies sinus pain, ear pain, sore throat, difficulty swallowing, dizziness. Respiratory: Denies dyspnea, cough, wheezing, hemoptysis, sputum. Cardiovascular: Denies chest pain, palpitations, orthopnea, edema. Gastrointestinal: See HPI : Decreased urine output. Denies dysuria, frequency, incontinence, hematuria, urinary retention. Musculoskeletal: Denies weakness, joint pain or bony pain. Reports right flank pain. Skin: Denies rash, skin lesions, or other. Neurologic: Denies weakness, headache, numbness, change in speech, confusion, seizures, incoordination. Psychiatric: No concerning psychosocial issues. Thirteen system review is otherwise negative other than as mentioned below and in HPI. PE: GENERAL: Alert, moderate distress due to abdominal pain. Moderately obese. Appears stated age. Answers questions promptly and appropriately. Vital signs noted. HENT: Normocephalic, atraumatic. Hearing intact. EYES: Conjunctiva pink, sclera white, no periorbital swelling. CARDIOVASCULAR: Regular rate. No pedal edema. RESPIRATORY: Non-tachypneic, breathing comfortably on room air. GASTROINTESTINAL: Abdomen soft and non-distended; markedly tender in the supraumbilical and periumbilical area, with no palpable mass due to patient's obesity, could not palpate hernia defect due to patient's tenderness GENITALURINARY: No flank tenderness. MUSCULOSKELETAL: Equal tone and mass bilaterally. SKIN: Warm, dry, soft, appropriate color for ethnicity. No other lesions, rashes, or wounds. NEURO: Alert and Oriented X 3. No gross sensory deficits, or cognitive issues. PSYCH: Appropriate affect and mood. Patient History Surgical History H/O thyroidectomy (Acute) History of (Acute) History of cholecystectomy (Acute) S/P appendectomy (Acute) Family & Social History Safety & Behavioral: Feels Safe in Current Yes Environment Been Physically Hurt or No Threatened By a Person Tobacco & Substance use: Smoking Status Never smoker alcohol intake frequency holiday/special occasion Substance Use Type does not use Meds Home Medications and Allergies Home Medications Medication Instructions Recorded Confirmed Type epinephrine [EpiPen] 0.3 mg IM Q15M PRN #1 each 04/10/19 Rx prednisone 60 mg PO DAILY #9 tab 04/10/19 Rx Allergies Allergy/AdvReac Type Severity Reaction Status Date / Time morphine Allergy Mild itching Verified 04/13/20 18:30 Penicillins Allergy Verified 04/13/20 14:13 shellfish derived Allergy Verified 04/13/20 14:13 Exam Vital Signs (past 8 hours): - 04/13/20 14:00 Temperature 98.2 F Pulse Rate 88 Respiratory Rate 15 Blood Pressure 138/86 Pulse Oximetry 97 Oxygen Delivery Method Room Air Objective Imaging CT scan - abdomen: Radiologist's impression: [place] [address] CT Scan Report Signed Patient: ShaileshDeanaMR#: [id number] : 1985Acct:[id number] Age/Sex: 34 / FDate of Service: 04/13/20 Loc: ED Accession Number: [id number] Procedure: CT abdomen pelvis w con Ordering Provider: Jimmy Silverio PROCEDURE: CT ABDOMEN PELVIS W CON INDICATIONS: periumbelical pain, N/V, hx abd surgeries TECHNIQUE: After the administration of intravenous contrast, 5 mm thick sections acquired from the diaphragm to the symphysis. 5 mm coronal and sagittal reformats were acquired. For radiation dose reduction, the following was used: automated exposure control, adjustment of mA and/or kV according to patient size. COMPARISON: None. FINDINGS: Image quality: Excellent. ABDOMEN: Lung bases: Lung bases are clear. Heart size is normal. Solid organs: Liver is normal in size and enhancement. Gallbladder is surgically absent . Biliary system is non dilated. Pancreas enhances normally. Spleen is normal in size and enhancement. No adrenal nodules. Kidneys demonstrate normal size and enhancement, without hydronephrosis. Peritoneum and bowel: Bowel loops demonstrate normal wall thickness and caliber. No free fluid or air. Appendectomy clips. Nodes and vessels: No retroperitoneal or mesenteric adenopathy by size criteria. Aorta and inferior vena cava are normal in size. Miscellaneous: 45 mm diameter fat containing umbilical hernia which contains mild fat stranding. PELVIS: Genitourinary: Bladder wall thickness is normal. Miscellaneous: No inguinal hernias or adenopathy. Bones: No suspicious bony lesions. No vertebral body compression fractures. IMPRESSION: 1. Fat containing periumbilical hernia which demonstrates evidence of strangulation. Dictated by: Celio Cavazos M.D. on 04/13/2020 at 15:59 Approved by: Celio Cavazos M.D. on 04/13/2020 at 16:01 Labs Result Diagrams: 04/13/20 14:17 04/13/20 14:17 Labs: Laboratory Results - last 24 hr 04/13/20 04/13/20 04/13/20 14:01 14:17 14:17 WBC 8.1 RBC 4.93 Hgb 13.3 Hct 40.2 MCV 81.5 MCH 27.1 MCHC 33.2 RDW 14.0 Plt Count 327 Neut % (Auto) 61.6 Lymph % (Auto) 27.5 [place] % (Auto) 7.3 Eos % (Auto) 2.5 Baso % (Auto) 1.1 Neut # (Auto) 5000 Lymph # (Auto) 2200 [place] # (Auto) 600 Eos # (Auto) 200 Baso # (Auto) 100 PT 10.8 INR 0.9 APTT 32 Sodium Potassium Chloride Carbon Dioxide BUN Creatinine Estimated GFR BUN/Creatinine Ratio Glucose Lactate Calcium Total Bilirubin AST ALT Alkaline Phosphatase Total Protein Albumin Globulin Albumin/Globulin Ratio Lipase Urine Color Yellow Urine Appearance Sl cloudy Urine pH 6.5 Ur Specific [place] 1.025 Urine Protein Negative Urine Glucose (UA) Negative Urine Ketones Negative Urine Occult Blood Trace-lysed Urine Nitrate Negative Urine Bilirubin Negative Urine Urobilinogen 0.2 Ur Leukocyte Esterase Negative Urine RBC 0-1/hpf Urine WBC 1-5/hpf Ur Squamous Epith Cells 5-10 /hpf H Urine Bacteria Moderate (10-30) H Ur Culture Indicated? Cult not indicated COVID-19 PCR 04/13/20 04/13/20 04/13/20 14:17 14:17 16:47 WBC RBC Hgb Hct MCV MCH MCHC RDW Plt Count Neut % (Auto) Lymph % (Auto) [place] % (Auto) Eos % (Auto) Baso % (Auto) Neut # (Auto) Lymph # (Auto) [place] # (Auto) Eos # (Auto) Baso # (Auto) PT INR APTT Sodium 138 Potassium 4.2 Chloride 100 Carbon Dioxide 30 BUN 10 Creatinine 0.97 Estimated GFR > 60.0 BUN/Creatinine Ratio 10.3 Glucose 86 Lactate 0.8 Calcium 9.4 Total Bilirubin 0.3 AST 32 ALT 40 H Alkaline Phosphatase 80 Total Protein 8.1 Albumin 4.3 Globulin 3.8 Albumin/Globulin Ratio 1.1 Lipase 143 Urine Color Urine Appearance Urine pH Ur Specific [place] Urine Protein Urine Glucose (UA) Urine Ketones Urine Occult Blood Urine Nitrate Urine Bilirubin Urine Urobilinogen Ur Leukocyte Esterase Urine RBC Urine WBC Ur Squamous Epith Cells Urine Bacteria Ur Culture Indicated? COVID-19 PCR Negative Assessment & Plan Assessment and plan (1) Obesity (BMI 35.0-39.9 without comorbidity): Status: Acute (2) Anxiety: Status: Acute (3) Strangulated umbilical hernia: Status: Acute Assessment & Plan narrative: This is a 34-year-old woman with a strangulated umbilical hernia. Risks and benefits of open repair of strangulated hernia were discussed including risk of bleeding, infection, damage to nearby structures, hernia recurrence, bowel strangulation, need for bowel resection, need for additional procedures. The patient desires to proceed with surgery. Plan: Proceed to OR for open repair of strangulated umbilical hernia COVID-19 COVID-19 status: Negative Result date/Date tested (Pos, Neg/Pending): 04/13/20 Time Spent With Patient Time with patient: Greater than 35 minutes Quality VTE Deep Vein Thrombosis/Pulmonary Embolism Present on Admission: No
[2020-04-13] MEDS: SCOPOLAMINE 1 PATCH TOP (19:42)
[2020-04-13] MEDS: LACTATED RINGERS 1,000 ML 42 ML IV ×2 (19:42→21:34)
--- NOTE | 2020-04-13 19:52 | SUR.HOLD ---
Patient ambulating to the bathroom without difficulty.
[2020-04-13] MEDS: CEFAZOLIN 2 GM/100 ML FROZ.PIGGY IV (19:58)
[2020-04-13] MEDS: BUPIVACAINE 0.25% W/ EPI 30 ML VIAL 60 ML INJ (20:18)
[2020-04-13] MEDS: BUPIVACAINE LIPOSOME 266 MG/20 ML VIAL INJ (20:18)
--- NOTE | 2020-04-13 20:19 | SUR.OPER ---
Supine on padded OR bed, head on pillow, arms secured on padded arm boards at <90 degrees abduction, legs uncrossed, safety belt at thigh, tape over blanket over lower legs.
--- NOTE | 2020-04-13 21:26 | P.OP_ITS ---
Operative Date/Time/Diagnoses Date of procedure: 04/13/20 Time of procedure: 21:26 Pre-op diagnosis: Incarcerated umbilical hernia Post-op diagnosis: other Procedure & Clinicians Procedure: Open repair of incarcerated umbilical hernia Same procedure as scheduled: Yes Indications: Sudden hernia incarceration and significant pain Surgeon: Sylvie Cary Click Yes if Unassisted: Yes Anesthesia Type: General Operative Notes Findings: Three small port site hernia defects with incarcerated omental fat Specimen(s): none sent Prosthetic devices, grafts, tissues, transplants, or devices: Bard 4.3 cm Ventralex patch Estimated Blood Loss (mL): 1 Procedure in detail: The patient was brought to the operating room, placed supine on the operating table, and sequential compression devices were placed on both legs and turned on. Appropriate perioperative antibiotics were given. General anesthesia was induced by the anesthesiologist and the patient was intubated with an LMA. The abdomen was then prepped and draped in sterile fashion, and a surgical time-out was conducted. At this point local anesthetic was injected using 0.25% Marcaine with epi, at the site of the planned incision. A 3cm transverse curvilinear incision was then made in the skin on the superior border of the umbilicus. Dissection was then carried down through the dermis and subcutaneous tissue, until the hernia sac was encountered. I dissected circumferentially around the hernia sac, which was dissected off of the umbilical skin. Upon dissecting out the set, it was opened, and there was incarcerated omentum within the sac. The 2 other defects were found, and once the 3 tiny defects were connected, there was a 1.5 cm defect in total. These are consistent with port site hernias from prior laparoscopic surgery. The hernia defect was 1.5 cm in diameter. The hernia sac was reduced through the defect, and a 4.3cm BARD Ventralex mesh was brought into the field and placed into the defect, between the peritoneum and the fascia. It was then sutured to the fascia in four corners using 2-0 PDS suture. I then closed the defect with 2-0PDS figure of eights. The fascia was then oversewn with 0 Vicryl [id number]. I then injected the fascia with 20mL of 0.25% Marcaine with epi, and 20mL of Exparel in small aliquots. I then covered the sutures with subcutaneous fat bringing it together with 3-0 Vicryl suture, tacked down the umbilical skin with 3-0 Vicryl and closed the skin with subcuticular Monocryl 4-0. The skin edges were then sealed with Dermabond. This concluded the procedure. Two cotton balls were placed in the umbilicus and covered with a Tegaderm. The patient was awakened from anesthesia and extubated. He was transferred onto his hospital [facility]. The patient was then transferred to the postanesthesia care unit in stable condition. He nael ated the procedure well. Needle sponge and instrument counts were correct x2 at the end of the case. Complications: none Post-operative Condition: stable Disposition: PACU
[2020-04-13] MEDS: HYDROMORPHONE 2 MG INJ IV ×2 (21:31→21:39)
[2020-04-13] MEDS: HALOPERIDOL 5 MG/ML VIAL 1 MG IV (21:38)
[2020-04-13] MEDS: MEPERIDINE 50 MG/ML INJ 12.5 MG IV (21:43)
--- NOTE | 2020-04-13 23:15 | PC.NURSE ---
A&OX4. 98% 2L. BTX4 hypo. no n/v. pt drinking water. abdomen distended and tender. dressing cdi. hoop bender tank RN aware that abdominal binder is ordered. pt ambulated to the bathroom. voiding without difficulty. splint teaching done. PIV SL. pt oriented to the room call light in reach. bed alarm active.
[2020-04-14] VITALS (7 sets, daily range): BP systolic 99–115; BP diastolic 57–75; PULSE 81–101; RESP 16–18; TEMP 36.1–36.2; O2SAT 94–98
[2020-04-14] MEDS: KETOROLAC 15 MG/ML VIAL IV ×2 (00:04→07:50)
--- NOTE | 2020-04-14 01:52 | PC.NURSE ---
Addendum entered by Portillo Pate R.N. 04/14/20 05:51: Pt c/o mild SOB. VSS, all lung ramirez clear O2 sat 98% on 1L O2, pt able to speak in full sentences. Explained to pt that a combination of abdominal bloating and pain may be making her feel a bit SOB, she agreed with this assessment. Requested pt call if she feels a continuation or worsening of this symptom. Addendum entered by Portillo Pate R.N. 04/14/20 01:57: Dressing at umbilicus c/d/i Original Note: Pt up and down frequently to toilet. States she has urge to urinate but is only producing small amounts of urine. Pt is steady on her feet with no c/o of dizziness. VSS throughout post - op assessments. HR will climb to low 1-teens with pain and ambulation, but return quickly to mid 80's with rest. Tordol given w/good results for abdominal pain. Abdominal binder in place - electrical development engineer could only find a XXL binder in central supply. Pt notes that she feels much more comfortable with it on even though it is rather large for her size. Pt tolerating clear liquid diet, no c/o of nausea.
[2020-04-14] MEDS: OXYCODONE IR 5 MG TABLET PO ×3 (03:34→10:36)
[2020-04-14] MEDS: HYDROMORPHONE 1 MG INJ 0.5 MG IV (04:09)
[2020-04-14] MEDS: DOCUSATE 100 MG CAPSULE PO (05:40)
[2020-04-14] MEDS: ENOXAPARIN 40 MG/0.4 ML SYRINGE SUBCUT (08:58)
[2020-04-14] MEDS: ONDANSETRON 4 MG/2 ML INJ IV (08:58)
--- NOTE | 2020-04-14 10:05 | P.DS_ITS ---
History of Present Illness History of Present Illness Date Patient Seen: 04/14/20 Time Patient Seen: 10:06 Chief complaint: thinks ulcer or intenstinal block Narrative: The patient is a woman admitted with severe mid abdominal pain. CT scan showed an incarcerated spots of please strangulated umbilical hernia containing fat Discharge Providers Provider Date of admission: 04/13/20 19:13 Discharge Date: 04/14/20 Consults: 04/13/20 22:26 Consult to Discharge Planning Routine Comment: Discharge provider: Otf Dobson MD Summary Hospital Course Discharge Diagnosis: Incarcerated umbilical hernia probably incisional in a prior laparoscopic incision. Acute incarceration Obesity with BMI 37 Hospital Course: Patient was taken the operating room where she was found to have incarcerated fat within a hernia this is reduced and the hernia repaired. Her postoperative course was smooth. She had some nausea and pain. Ultimately tolerated some solid breakfast. Had some nausea with it which abated. She is discharged to follow up with Dr. beasley in the office. Status at Discharge Cognitive/behavioral status at discharge: oriented Functional status at discharge: independent ambulation Overall status at discharge: patient is progressing back to baseline Time Spent with Patient Time spent: Less than 30 minutes Exam Vital Signs (past 8 hours): - 04/14/20 02:26 04/14/20 04:45 04/14/20 06:00 Temperature 97.1 F L Pulse Rate 81 Respiratory Rate 16 Blood Pressure 101/62 Pulse Oximetry 95 96 96 04/14/20 08:05 Temperature 97.0 F L Pulse Rate 85 Respiratory Rate 18 Blood Pressure 99/57 L Pulse Oximetry 94 Oxygen Delivery Method Nasal Cannula Oxygen Flow Rate 0 Narrative Exam Narrative: Lungs are clear good effort. Abdomen is protuberant soft. Her dressing is dry and intact. She has a binder on her abdomen. Objective Labs Result Diagrams: 04/13/20 14:17 04/13/20 14:17 Labs: Laboratory Results - last 24 hr 04/13/20 04/13/20 04/13/20 14:01 14:17 14:17 WBC 8.1 RBC 4.93 Hgb 13.3 Hct 40.2 MCV 81.5 MCH 27.1 MCHC 33.2 RDW 14.0 Plt Count 327 Neut % (Auto) 61.6 Lymph % (Auto) 27.5 [place] % (Auto) 7.3 Eos % (Auto) 2.5 Baso % (Auto) 1.1 Neut # (Auto) 5000 Lymph # (Auto) 2200 [place] # (Auto) 600 Eos # (Auto) 200 Baso # (Auto) 100 PT 10.8 INR 0.9 APTT 32 Sodium Potassium Chloride Carbon Dioxide BUN Creatinine Estimated GFR BUN/Creatinine Ratio Glucose Lactate Calcium Total Bilirubin AST ALT Alkaline Phosphatase Total Protein Albumin Globulin Albumin/Globulin Ratio Lipase Urine Color Yellow Urine Appearance Sl cloudy Urine pH 6.5 Ur Specific [place] 1.025 Urine Protein Negative Urine Glucose (UA) Negative Urine Ketones Negative Urine Occult Blood Trace-lysed Urine Nitrate Negative Urine Bilirubin Negative Urine Urobilinogen 0.2 Ur Leukocyte Esterase Negative Urine RBC 0-1/hpf Urine WBC 1-5/hpf Ur Squamous Epith Cells 5-10 /hpf H Urine Bacteria Moderate (10-30) H Ur Culture Indicated? Cult not indicated COVID-19 PCR 04/13/20 04/13/20 04/13/20 14:17 14:17 16:47 WBC RBC Hgb Hct MCV MCH MCHC RDW Plt Count Neut % (Auto) Lymph % (Auto) [place] % (Auto) Eos % (Auto) Baso % (Auto) Neut # (Auto) Lymph # (Auto) [place] # (Auto) Eos # (Auto) Baso # (Auto) PT INR APTT Sodium 138 Potassium 4.2 Chloride 100 Carbon Dioxide 30 BUN 10 Creatinine 0.97 Estimated GFR > 60.0 BUN/Creatinine Ratio 10.3 Glucose 86 Lactate 0.8 Calcium 9.4 Total Bilirubin 0.3 AST 32 ALT 40 H Alkaline Phosphatase 80 Total Protein 8.1 Albumin 4.3 Globulin 3.8 Albumin/Globulin Ratio 1.1 Lipase 143 Urine Color Urine Appearance Urine pH Ur Specific [place] Urine Protein Urine Glucose (UA) Urine Ketones Urine Occult Blood Urine Nitrate Urine Bilirubin Urine Urobilinogen Ur Leukocyte Esterase Urine RBC Urine WBC Ur Squamous Epith Cells Urine Bacteria Ur Culture Indicated? COVID-19 PCR Negative Discharge Plan Discharge Plan Patient Disposition: Home Discharge comment: In 2 days you may remove the umbilical dressing and shower. Avoid lifting/pushing/pulling more than 10 lb, constipation, or straining the abdominal wall by any means. Discharge orders & Medications Prescriptions: New hydrocodone-acetaminophen 7.5-325 mg tablet 1 tab PO Q4-6H PRN (Reason: Postoperative pain) Qty: 30 RF: 0 docusate sodium 100 mg capsule 100 mg PO BID Qty: 20 RF: 0 oxycodone-acetaminophen [Percocet] 5-325 mg tablet See Rx Instructions .ROUTE .COMPLEX PRN (Reason: painful procedure) Qty: 14 RF: 0 ondansetron HCl [Zofran] 8 mg tablet 8 mg PO Q8H PRN (Reason: nausea and vomiting) Qty: 5 RF: 0 Continued prednisone 20 mg tablet 60 mg PO DAILY Qty: 9 RF: 0 epinephrine [EpiPen] 0.3 mg/0.3 mL auto-injector 0.3 mg IM Q15M PRN (Reason: anaphylaxis) Qty: 1 RF: 0 Follow up/Referrals: Sylvie Cary MD [Physician] - 2 Weeks (Please call our office on Thursday and make an appointment to see Dr. Cary in about 2 weeks from yesterday.) Discharge Health Status Multidrug resistant organism: No MDRO Diet/Activity/Treatments Diet: Diet as Tolerated Activity: Do not operate machinery or drive today. Do not sign important documents today. Do not drive into you are pain-free off medication. If you need to use a laxative you should do so. Milk of magnesia as 1 example. You may walk. No lifting over 10 lb or straining for the next 6 weeks. Skin/Wound/Dressing Care Report to your healthcare provider any signs of infection, such as:: chills, fever, night sweats, increased pain, unusual drainage and unusual redness Dressing: You may remove your clear plastic bandage and dressing under it in 2 days and shower. If there are pieces of tape or blue or violent material over the incision let them fall off on their own. Do not pick at them. Visit Report/Discharge Packet Instructions: DI for Hernia Repair, [facility]: Wound Care Stand Alone Forms: Surgery Discharge Discharge Data Attending Provider: Sylvie Cary Admit Date/Time: 04/13/20 19:13 Quality VTE Deep Vein Thrombosis/Pulmonary Embolism Present on Admission: No
--- NOTE | 2020-04-14 10:58 | PC.NURSE ---
Pt is dressed and ready for discharge home with Spouse. Went over d/c instructions, reviewed d/c meds, time of last dose, stroke education, binder, no lifting over 10 pounds, no driving while on narcotics, s/s of infection and when to call MD, follow up and reminded Pt to drink plenty of fluids to prevent constipation or dehydration. Pt denies further questions and was taken out via w/c by [employer]CR[employer]E [employer]EM[employer] to POV with all belongings.
--- NOTE | 2020-04-14 11:57 | CM.DANOTE ---
Discharge Planning/Care Management DCP: assessment: case received, EMR reviewed. Discussed in Team Rounds and with a d/c to home order noted. Pt is a 34 year old female who admitted last evening to care of [facility]: Dr. Cary. She was taken to surgery and then this morning was cleared for d/c home. Payer: [employer] By time Rounds were completed pt had already left for home in company of her spouse. No d/c concerns were noted by the care team members. Advanced directive, confirm from FAMILY Start: 04/14/20 00:17 Freq: Q24H Status: Active Protocol: Document 04/14/20 00:17 RM (Rec: 04/14/20 00:54 RM [id number]) Advance Directive, confirm on record Time 23:45 Person contacted Patient Copy received No CM Discharge Assessment Start: 04/14/20 11:56 Freq: Status: Active Protocol: Document 04/14/20 11:56 ITV (Rec: 04/14/20 11:57 ITV [id number]) Discharge Planning Assessment Advance Directives? No History Provided By Medical Record Prior Living Arrangements House Household Members family Review Status In Process
== END 2020-04-14 11:00 | disposition home or self-care (01) ==
LOC: ED 14:01 → AC 19:13
PROVIDERS: Admitting Provider Surgery; Emergency Provider Nurse Practitioner Family; Visit Provider Surgery
PROC: (CPT 49585; principal; 2020-04-13 19:30)
DX: K42.0 Umbilical hernia with obstruction, without gangrene (principal); F41.9 Anxiety disorder, unspecified; Z11.59 Encounter for screening for other viral diseases; E66.01 Morbid (severe) obesity due to excess calories; Z68.35 Body mass index [BMI] 35.0-35.9, adult
CPT/HCPCS: 49585; 36415; 74177; 80053; 81001; 81025; 83605; 83690; 85025; 85610; 85730; 87635; 93005; 96361; 96372; 96374; 96375; 96376; 99284; C1781; G0378; C9113; C9290; J0330; J0690; J1100; J1170; J1200; J1630; J1650; J1885; J2175; J2250; J2270; J2405; J2704; J3010; Q9967

== ENCOUNTER 2020-04-15 06:15 | Emergency (ER) | payer OTHER, SELFPAY ==
[2020-04-13 22:51] VITALS: BMI 37.4
[2020-04-15] VITALS (10 sets, daily range): BP systolic 104–130; BP diastolic 57–70; PULSE 55–88; RESP 19–23; TEMP 37; O2SAT 96–99; BMI 36.2
--- NOTE | 2020-04-15 06:16 | ED_ITS ---
HPI - Abdominal Pain <Paul Nevarez DO - Last Filed: 04/15/20 20:38> General Chief Complaint: Abdominal Pain Stated Complaint: abd pain Time Seen by Provider: 04/15/20 06:15 Source: patient Mode of arrival: Ambulatory Limitations: no limitations History of Present Illness HPI narrative: 34-year-old female nonsmoker with noncontributory medical history presents with the chief complaint of severe deep midline abdominal pain with nausea since about 2:00 a.m. this morning. She was just discharged yesterday for the care of an incarcerated umbilical hernia. It was repaired with mesh and she was discharged yesterday feeling quite well. She ate dinner without too much difficulty. She is passing gas but still has not had a BM. She admits to frequent urination MD complaint: abdominal pain Onset (ago): hour(s) Pain Consistency: constant Location: periumbilical Severity: severe Quality: stabbing Radiation: none Relieving factors: rest Exacerbating factors: movement Context: recent surgery/procedure Associated symptoms: nausea Related Data Previous Rx's Medication Instructions Recorded epinephrine [EpiPen] 0.3 mg IM Q15M PRN #1 each 04/10/19 prednisone 60 mg PO DAILY #9 tab 04/10/19 docusate sodium 100 mg PO BID #20 cap 04/14/20 hydrocodone-acetaminophen 1 tab PO Q4-6H PRN #30 tab 04/14/20 ondansetron HCl [Zofran] 8 mg PO Q8H PRN #5 tab 04/14/20 oxycodone-acetaminophen [Percocet] See Rx Instructions .ROUTE 04/14/20 .COMPLEX PRN #14 tab hydrocodone-acetaminophen 1 tab PO Q6H PRN #10 tab 04/15/20 Allergies Allergy/AdvReac Type Severity Reaction Status Date / Time morphine Allergy Mild itching Verified 04/13/20 18:30 Penicillins Allergy Verified 04/13/20 14:13 shellfish derived Allergy Verified 04/13/20 14:13 Review of Systems <Paul Nevarez DO - Last Filed: 04/15/20 20:38> Constitutional Constitutional: Denies chills, Denies fatigue, Denies fever(s), Denies frequent falls, Denies lethargy and Denies weakness Eyes Eyes: Denies change in vision, Denies eye discharge, Denies irritation and Denies loss of vision ENT Ears, Nose, Mouth, and Throat: Denies change in voice, Denies dizziness, Denies neck pain, Denies sore throat and Denies throat swelling Cardiovascular Cardiovascular: Denies chest pain, Denies irregular heart rhythm, Denies lightheadedness, Denies palpitations, Denies dyspnea, Denies dyspnea on exertion and Denies orthopnea Respiratory Respiratory: Denies cough, Denies dyspnea, Denies dyspnea on exertion and Denies wheezing Gastrointestinal Gastrointestinal: Reports abdominal pain, Denies change in bowel habits, Denies diarrhea, Reports nausea and Denies vomiting Musculoskeletal Musculoskeletal: Denies neck pain and Denies numbness Integumentary/Breasts Skin/Breast: Denies pruritus, Denies erythema, Denies rash and Denies wounds Neurologic Neurologic: Denies behavioral changes, Denies confusion, Denies dizziness, Denies frequent falls, Denies loss of vision, Denies numbness and Denies weakness Psychiatric Psychiatric: Denies anxiety, Denies behavioral changes, Denies confusion, Denies depression, Denies homicidal ideation and Denies suicidal ideation Endocrine Endocrine: Denies fatigue, Denies flushing and Denies palpitations Hematologic/Lymphatic Hematologic/Lymphatic: Denies easy bruising Allergic/Immunologic Allergic/Immunologic: Denies urticaria, Denies throat swelling and Denies wheezing Patient History <Paul Nevarez DO - Last Filed: 04/15/20 20:38> Surgical History H/O thyroidectomy (Acute) History of (Acute) History of cholecystectomy (Acute) S/P appendectomy (Acute) Social History household members: family Smoking Status: Never smoker Smoking Status: Never smoker alcohol intake frequency: holidays/special occasions only Substance Use Type: does not use Exam <Paul Nevarez DO - Last Filed: 04/15/20 20:38> Narrative Exam Narrative: GENERAL: [34] year old patient appears stated age. Well- nourished, well-developed patient, in obvious distress, tearful, crying, holding an emesis bag HEAD: Atraumatic. Normocephalic. EYES: Pupils equal round and reactive. Extraocular motions intact. No scleral icterus. No injection or drainage. ENT: Nose without bleeding, purulent drainage. Throat without erythema, tonsillar hypertrophy or exudate. Airway patent. NECK: Trachea midline. Non tender CARDIOVASCULAR: Regular rate and rhythm without murmurs, gallops, or rubs. RESPIRATORY: Clear to auscultation. Breath sounds equal bilaterally. No wheezes, rales, or rhonchi. GASTROINTESTINAL: Abdomen soft, significant tenderness with some distention. Bowel sounds noted in all 4 quadrants. EXTREMITIES: No edema or joint tenderness. BACK: Nontender without deformity or crepitance. No flank tenderness. NEURO: AOx3. SKIN: No rash or erythema of visible areas Initial Vital Signs Initial Vital Signs: Vital Signs Temperature 98.6 F 04/15/20 06:27 Pulse Rate 88 04/15/20 06:27 Respiratory Rate 23 04/15/20 06:27 Blood Pressure 130/70 04/15/20 06:27 Pulse Oximetry 97 04/15/20 06:27 <Sharyn Arellano DO - Last Filed: 04/15/20 13:25> Initial Vital Signs Initial Vital Signs: Vital Signs Temperature 98.6 F 04/15/20 06:27 Pulse Rate 88 04/15/20 06:27 Respiratory Rate 23 04/15/20 06:27 Blood Pressure 130/70 04/15/20 06:27 Pulse Oximetry 97 04/15/20 06:27 Course <Paul Nevarez DO - Last Filed: 04/15/20 20:38> Course Course Narrative: [id number] - surgeon still busy, has not had a chance to call back. Patient much more comfortable, will sign out to Dr. Arellano for final disposition after consultation with surgery Orders Ordered: Discontinued Medications Hydrocodone Bitart/Acetaminophen ([place] 5/325) 2 tab PO NOW ONE Stop: 04/15/20 08:10 Last Admin: 04/15/20 08:27 Dose: 2 tab Documented by: WILFRED Hydromorphone HCl (Dilaudid) 0.5 mg IV NOW ONE Stop: 04/15/20 06:30 Last Admin: 04/15/20 06:36 Dose: 0.5 mg Documented by: RAMIRO Hydromorphone HCl (Dilaudid) 0.5 mg IV NOW ONE Stop: 04/15/20 08:18 Last Admin: 04/15/20 08:27 Dose: 0.5 mg Documented by: WILFRED Sodium Chloride (Normal Saline 0.9%) 1,000 mls @ 1,000 mls/hr IV BOLUS ONE Stop: 04/15/20 07:28 Last Infusion: 04/15/20 08:32 Dose: 0 mls/hr Documented by: Admin: 04/15/20 06:35 Dose: 1,000 mls/hr Documented by: RAMIRO Ketorolac Tromethamine (Toradol) 30 mg IV NOW ONE Stop: 04/15/20 09:57 Last Admin: 04/15/20 09:58 Dose: 30 mg Documented by: WILFRED Ondansetron HCl (Zofran) 4 mg IV Q4HR PRN PRN Reason: Nausea And Vomiting Last Admin: 04/15/20 06:36 Dose: 4 mg Documented by: RAMIRO Consultations Consultation #1: call to on-call surgery to discuss Time: 06:29 Vital Signs Vital signs: Vital Signs - 8 hr 04/15/20 06:27 04/15/20 06:49 04/15/20 07:00 Temperature 98.6 F Pulse Rate 88 61 66 Respiratory Rate 23 Blood Pressure 130/70 Pulse Oximetry 97 99 96 04/15/20 07:33 04/15/20 07:34 04/15/20 08:00 Temperature Pulse Rate 57 L 55 L Respiratory Rate Blood Pressure 104/57 L Pulse Oximetry 96 97 97 04/15/20 08:03 04/15/20 08:49 04/15/20 09:00 Temperature Pulse Rate 59 L 69 64 Respiratory Rate Blood Pressure 117/69 Pulse Oximetry 97 98 97 04/15/20 10:10 Temperature Pulse Rate 58 L Respiratory Rate 19 Blood Pressure 113/57 L Pulse Oximetry 97 <Sharyn Arellano DO - Last Filed: 04/15/20 13:25> Orders Ordered: Discontinued Medications Hydrocodone Bitart/Acetaminophen ([place] 5/325) 2 tab PO NOW ONE Stop: 04/15/20 08:10 Last Admin: 04/15/20 08:27 Dose: 2 tab Documented by: WILFRED Hydromorphone HCl (Dilaudid) 0.5 mg IV NOW ONE Stop: 04/15/20 06:30 Last Admin: 04/15/20 06:36 Dose: 0.5 mg Documented by: RAMIRO Hydromorphone HCl (Dilaudid) 0.5 mg IV NOW ONE Stop: 04/15/20 08:18 Last Admin: 04/15/20 08:27 Dose: 0.5 mg Documented by: WILFRED Sodium Chloride (Normal Saline 0.9%) 1,000 mls @ 1,000 mls/hr IV BOLUS ONE Stop: 04/15/20 07:28 Last Infusion: 04/15/20 08:32 Dose: 0 mls/hr Documented by: Admin: 04/15/20 06:35 Dose: 1,000 mls/hr Documented by: RAMIRO Ketorolac Tromethamine (Toradol) 30 mg IV NOW ONE Stop: 04/15/20 09:57 Last Admin: 04/15/20 09:58 Dose: 30 mg Documented by: WILFRED Ondansetron HCl (Zofran) 4 mg IV Q4HR PRN PRN Reason: Nausea And Vomiting Last Admin: 04/15/20 06:36 Dose: 4 mg Documented by: RAMIRO Vital Signs Vital signs: Vital Signs - 8 hr 04/15/20 06:27 04/15/20 06:49 04/15/20 07:00 Temperature 98.6 F Pulse Rate 88 61 66 Respiratory Rate 23 Blood Pressure 130/70 Pulse Oximetry 97 99 96 04/15/20 07:33 04/15/20 07:34 04/15/20 08:00 Temperature Pulse Rate 57 L 55 L Respiratory Rate Blood Pressure 104/57 L Pulse Oximetry 96 97 97 04/15/20 08:03 04/15/20 08:49 04/15/20 09:00 Temperature Pulse Rate 59 L 69 64 Respiratory Rate Blood Pressure 117/69 Pulse Oximetry 97 98 97 04/15/20 10:10 Temperature Pulse Rate 58 L Respiratory Rate 19 Blood Pressure 113/57 L Pulse Oximetry 97 MDM - Abdominal Pain <Paul Nevarez DO - Last Filed: 04/15/20 20:38> Lab Data Result diagrams: 04/15/20 06:27 04/15/20 06:27 Labs: Lab Results 04/15/20 04/15/20 04/15/20 Range/Units 06:27 06:27 06:27 WBC 12.9 H D (4.5-11.0) X10^3/uL RBC 4.31 (4.0-5.2) X10^6/uL Hgb 11.6 L (12.0-16.0) g/dL Hct 35.7 L (36-46) % MCV 82.7 (80-100) fL MCH 26.8 (26-34) PG MCHC 32.4 (30-36) % RDW 14.4 (11.6-14.8) % Plt Count 301 (150-400) X10^3/uL Neut % (Auto) 68.5 (50-75) % Lymph % (Auto) 23.6 L (25-40) % Randall % (Auto) 6.3 (3-14) % Eos % (Auto) 0.9 L (2-4) % Baso % (Auto) 0.7 (0-2) % Neut # (Auto) 8900 H (2336-4195) /uL Lymph # (Auto) 3000 (3689-4687) /uL Randall # (Auto) 800 (0-900) /uL Eos # (Auto) 100 (0-450) /uL Baso # (Auto) 100 (0-100) /uL Sodium 139 (137-145) mmol/L Potassium 3.7 (3.4-5.1) mmol/L Chloride 106 (98-107) mmol/L Carbon Dioxide 26 (22-32) mmol/L BUN 12 (7-17) mg/dL Creatinine 0.78 (0.52-1.04) mg/dL Estimated GFR > 60.0 (>60) mL/min BUN/Creatinine Ratio 15.4 (6-22) Glucose 94 (70-100) mg/dL Calcium 8.9 (8.4-10.2) mg/dL Serum , Qual Negative (Negative) Imaging Data Abdominal x-ray: My Impression: non-specific bowel gas pattern. Non-obstructive <Sharyn Arellano, DO - Last Filed: 04/15/20 13:25> Lab Data Attestation: I reviewed the patient's lab results. Labs: Lab Results 04/15/20 04/15/20 04/15/20 Range/Units 06:27 06:27 06:27 WBC 12.9 H D (4.5-11.0) X10^3/uL RBC 4.31 (4.0-5.2) X10^6/uL Hgb 11.6 L (12.0-16.0) g/dL Hct 35.7 L (36-46) % MCV 82.7 (80-100) fL MCH 26.8 (26-34) PG MCHC 32.4 (30-36) % RDW 14.4 (11.6-14.8) % Plt Count 301 (150-400) X10^3/uL Neut % (Auto) 68.5 (50-75) % Lymph % (Auto) 23.6 L (25-40) % Randall % (Auto) 6.3 (3-14) % Eos % (Auto) 0.9 L (2-4) % Baso % (Auto) 0.7 (0-2) % Neut # (Auto) 8900 H (5415-6842) /uL Lymph # (Auto) 3000 (5465-0799) /uL Randall # (Auto) 800 (0-900) /uL Eos # (Auto) 100 (0-450) /uL Baso # (Auto) 100 (0-100) /uL Sodium 139 (137-145) mmol/L Potassium 3.7 (3.4-5.1) mmol/L Chloride 106 (98-107) mmol/L Carbon Dioxide 26 (22-32) mmol/L BUN 12 (7-17) mg/dL Creatinine 0.78 (0.52-1.04) mg/dL Estimated GFR > 60.0 (>60) mL/min BUN/Creatinine Ratio 15.4 (6-22) Glucose 94 (70-100) mg/dL Calcium 8.9 (8.4-10.2) mg/dL Serum , Qual Negative (Negative) Imaging Data Abdominal x-ray: Radiologist's Impression: PROCEDURE: XR ACUTE ABDOMEN SERIES INDICATIONS: Abdominal pain TECHNIQUE: One view chest and two views of the abdomen were acquired. COMPARISON: [facility], CT, CT ABDOMEN PELVIS W CON, 04/13/2020, 15:45. FINDINGS: Surgical changes and devices: Cholecystectomy clips are seen. Chest: Lungs are clear. Heart size is normal. No pleural effusions. No pneumoperitoneum. Abdomen: Bowel gas pattern is normal. No suspicious calcifications. Visualized solid organ contours appear normal. Bones: No suspicious bony lesions. IMPRESSION: A nonobstructive bowel gas pattern is seen. As clinically appropriate, please consider a repeat plain film study or a dedicated CT of the abdomen and pelvis, if the patient's symptoms persist or worsen. Dictated by: Akira Rebolledo M.D. on 04/15/2020 at 7:15 CT scan - abdomen/pelvis: Radiologist's Impression: PROCEDURE: CT ABDOMEN PELVIS W CON INDICATIONS: increased pain post surgery TECHNIQUE: After the administration of intravenous contrast, 5 mm thick sections acquired from the diaphragm to the symphysis. 5 mm coronal and sagittal reformats were acquired. For radiation dose reduction, the following was used: automated exposure control, adjustment of mA and/or kV according to patient size. COMPARISON: [facility], CR, XR ACUTE ABDOMEN SERIES, 04/15/2020, 6:25. [facility], CT, CT ABDOMEN PELVIS W CON, 04/13/2020, 15:45. FINDINGS: Image quality: Excellent. ABDOMEN: Lung bases: Lung bases are clear. Heart size is normal. Solid organs: Liver is normal in size and enhancement. Gallbladder has been removed. Biliary system is non dilated. Pancreas enhances normally. Spleen is normal in size and enhancement. No adrenal nodules. Kidneys demonstrate normal size and enhancement, without hydronephrosis. Peritoneum and bowel: Bowel loops demonstrate normal wall thickness and caliber. No free fluid or air. Presumed appendectomy changes can be seen. Please correlate with known patient history. Nodes and vessels: No retroperitoneal or mesenteric adenopathy by size criteria. Aorta and inferior vena cava are normal in size. Miscellaneous: Periumbilical postoperative changes seen, with fatty stranding and mild gas. Regional gas can be seen at this site, including just posterior to the anterior abdominal wall. No focal fluid collection is seen to suggest abscess. PELVIS: Genitourinary: Bladder wall thickness is normal. The uterus appears normal for age. No adnexal masses are seen. Cystic changes seen of the left ovary, which is considered to be within physiologic limits for age. Miscellaneous: No inguinal hernias or adenopathy. Bones: No suspicious bony lesions. No vertebral body compression fractures. Mild levoconvex scoliotic curvature is noted. IMPRESSION: Fatty stranding and gas can be seen within the region of periumbilical postoperative change 2 days previously. No focal abscess or other yunior postoperative complication can be seen. No recurrent hernia is seen. Incidental note is made of: Apparent prior appendectomy Cystic change of the left ovary, which is considered to be within physiologic limits Levoconvex scoliotic curvature Dictated by: Akira Rebolledo M.D. on 04/15/2020 at 8:01 [facility] Narrative Medical decision making narrative: Patient signed out to me by Dr. Nevarez is seen evaluated her myself her pain is much better controlled but remains extreme ly tender right of umbilicus. X-ray did not show any obstruction. Waiting for surgeries to return call. 815 patient having increased abdominal pain. Will get CT. Was trying to avoid but with increased pain need more evaluation. 915 CT does not show any complication. This is likely postoperative pain. According to records patient was supposed to be sent home with 30 hydrocodone however his something happened and patient never received that prescription instead the discharge in physician a for 14 Percocet. Patient states that the Percocet was not working she is given small prescription of hydrocodone and recommended she follow-up with a surgery for more pain medications. Discharge Plan Departure Patient Disposition: Home Clinical Impression: Postoperative abdominal pain Discharge Date/Time: 04/15/20 10:13 Instructions: DI for Abdominal Pain-Adult Activity Restrictions/Additional Instructions: *You have been diagnosed with postoperative abdominal pain *What to do: At this time CT scan does not show any abnormality a complication from surgery. Please stay on top of your pain medications and try to stay ahead of them. *Continue to take medications as directed--> SENT TO [facility] 1 tablet every 4 hours or 2 tablets every 6 If you should need more pain medications please discuss this with your surgeon or your primary care provider *Follow up with your primary care provider in 2-3 days *Return to ER if you should have increased pain and persistent vomiting, fever more than 100.4 or any new, worsening or concerning symptoms CONTROLLED SUBSTANCE DISCHARGE (Narcotoic/benzodiazepine/Flexeril/Phenergan) 1. You have been prescribed narcotic medications, it does have acetaminophen/Tylenol/paracetamol in it so do not take extra Tylenol or Tylenol containing products TRAMADOL DOES NOT CONTAIN TYLENOL 2. Please understand that we cannot provide further refills of narcotics, benzodiazepines or controlled substances through the ED and her pain management will need to be through your provider. 3. While on these medications you cannot drive or operate heavy machinery. 4. You cannot sign legal documents or perform any duties such as this. 5. As long as you're taking opiate pain medications he should also be taking a stool softener such as Colace, Dulcolax, MiraLAX or prune juice, to help avoid constipation. Prescriptions: New hydrocodone-acetaminophen 5-325 mg tablet 1 tab PO Q6H PRN (Reason: pain) Qty: 10 RF: 0 No Action prednisone 20 mg tablet 60 mg PO DAILY Qty: 9 RF: 0 epinephrine [EpiPen] 0.3 mg/0.3 mL auto-injector 0.3 mg IM Q15M PRN (Reason: anaphylaxis) Qty: 1 RF: 0 hydrocodone-acetaminophen 7.5-325 mg tablet 1 tab PO Q4-6H PRN (Reason: Postoperative pain) Qty: 30 RF: 0 docusate sodium 100 mg capsule 100 mg PO BID Qty: 20 RF: 0 oxycodone-acetaminophen [Percocet] 5-325 mg tablet See Rx Instructions .ROUTE .COMPLEX PRN (Reason: painful procedure) Qty: 14 RF: 0 ondansetron HCl [Zofran] 8 mg tablet 8 mg PO Q8H PRN (Reason: nausea and vomiting) Qty: 5 RF: 0 Referrals: Sylvie Cary MD [Physician] -
--- NOTE | 2020-04-15 06:30 | DI.RAD.S_ITS ---
PROCEDURE: XR ACUTE ABDOMEN SERIES INDICATIONS: Abdominal pain TECHNIQUE: One view chest and two views of the abdomen were acquired. COMPARISON: [facility], CT, CT ABDOMEN PELVIS W CON, 04/13/2020, 15:45. FINDINGS: Surgical changes and devices: Cholecystectomy clips are seen. Chest: Lungs are clear. Heart size is normal. No pleural effusions. No pneumoperitoneum. Abdomen: Bowel gas pattern is normal. No suspicious calcifications. Visualized solid organ contours appear normal. Bones: No suspicious bony lesions. IMPRESSION: A nonobstructive bowel gas pattern is seen. As clinically appropriate, please consider a repeat plain film study or a dedicated CT of the abdomen and pelvis, if the patient's symptoms persist or worsen. Dictated by: Akira Rebolledo M.D. on 04/15/2020 at 7:15 Approved by: Akira Rebolledo M.D. on 04/15/2020 at 7:16
[2020-04-15] MEDS: SODIUM CHLORIDE 0.9% 1,000 ML 1000 ML IV (06:35)
[2020-04-15] MEDS: HYDROMORPHONE 0.5 MG INJ IV ×2 (06:36→08:27)
[2020-04-15] MEDS: ONDANSETRON 4 MG/2 ML INJ IV (06:36)
[2020-04-15 06:42] LABS: Add Manual Diff / Slide Review NO; Basophils Absolute Auto 100 /uL (0-100); Basophils Percent Auto 0.7 % (0-2); Eosinophils Absolute Auto 100 /uL (0-450); Eosinophils Percent Auto 0.9 % (2-4); Hematocrit 35.7 % (36-46); Hemoglobin 11.6 g/dL (12.0-16.0); Lymphocytes Absolute Auto 3000 /uL (1100-4500); Lymphocytes Percent Auto 23.6 % (25-40); Mean Corpuscular HGB Conc 32.4 % (30-36); Mean Corpuscular Hemoglobin 26.8 PG (26-34); Mean Corpuscular Volume 82.7 fL (80-100); Monocytes Absolute Auto 800 /uL (0-900); Monocytes Percent Auto 6.3 % (3-14); Neutrophils Absolute Auto 8900 /uL (1500-7000); Neutrophils Percent Auto 68.5 % (50-75); Platelet Count 301 X10^3/uL (150-400); Red Blood Cell Count 4.31 X10^6/uL (4.0-5.2); Red Cell Distribution Width 14.4 % (11.6-14.8); White Blood Cell Count 12.9 X10^3/uL (4.5-11.0)
[2020-04-15 06:44] LABS: BUN Creatinine Ratio 15.4 (6-22); Blood Urea Nitrogen 12 mg/dL (7-17); Calcium 8.9 mg/dL (8.4-10.2); Carbon Dioxide 26 mmol/L (22-32); Chloride 106 mmol/L (98-107); Estimated Glomerular Filt Rate > 60.0 mL/min (>60); Glucose 94 mg/dL (70-100); HEMOLYSIS 23 (0-50); Potassium 3.7 mmol/L (3.4-5.1); Sodium 139 mmol/L (137-145)
--- NOTE | 2020-04-15 08:13 | DI.CT.S_ITS ---
PROCEDURE: CT ABDOMEN PELVIS W CON INDICATIONS: increased pain post surgery TECHNIQUE: After the administration of intravenous contrast, 5 mm thick sections acquired from the diaphragm to the symphysis. 5 mm coronal and sagittal reformats were acquired. For radiation dose reduction, the following was used: automated exposure control, adjustment of mA and/or kV according to patient size. COMPARISON: [facility], CR, XR ACUTE ABDOMEN SERIES, 04/15/2020, 6:25. [facility], CT, CT ABDOMEN PELVIS W CON, 04/13/2020, 15:45. FINDINGS: Image quality: Excellent. ABDOMEN: Lung bases: Lung bases are clear. Heart size is normal. Solid organs: Liver is normal in size and enhancement. Gallbladder has been removed. Biliary system is non dilated. Pancreas enhances normally. Spleen is normal in size and enhancement. No adrenal nodules. Kidneys demonstrate normal size and enhancement, without hydronephrosis. Peritoneum and bowel: Bowel loops demonstrate normal wall thickness and caliber. No free fluid or air. Presumed appendectomy changes can be seen. Please correlate with known patient history. Nodes and vessels: No retroperitoneal or mesenteric adenopathy by size criteria. Aorta and inferior vena cava are normal in size. Miscellaneous: Periumbilical postoperative changes seen, with fatty stranding and mild gas. Regional gas can be seen at this site, including just posterior to the anterior abdominal wall. No focal fluid collection is seen to suggest abscess. PELVIS: Genitourinary: Bladder wall thickness is normal. The uterus appears normal for age. No adnexal masses are seen. Cystic changes seen of the left ovary, which is considered to be within physiologic limits for age. Miscellaneous: No inguinal hernias or adenopathy. Bones: No suspicious bony lesions. No vertebral body compression fractures. Mild levoconvex scoliotic curvature is noted. IMPRESSION: Fatty stranding and gas can be seen within the region of periumbilical postoperative change 2 days previously. No focal abscess or other yunior postoperative complication can be seen. No recurrent hernia is seen. Incidental note is made of: Apparent prior appendectomy Cystic change of the left ovary, which is considered to be within physiologic limits Levoconvex scoliotic curvature Dictated by: Akira Rebolledo M.D. on 04/15/2020 at 8:01 Approved by: Akira Rebolledo M.D. on 04/15/2020 at 8:05
[2020-04-15] MEDS: HYDROCODONE/ACET 5/325 TABLET 2 TAB PO (08:27)
[2020-04-15 08:30] LABS: Pregnancy Test Serum,Qual Negative (Negative)
[2020-04-15] MEDS: KETOROLAC 60 MG/2 ML VIAL 30 MG IV (09:58)
== END 2020-04-15 10:13 | disposition home or self-care (01) ==
PROVIDERS: Emergency Medicine; Emergency Provider Emergency Medicine
DX: G89.18 Other acute postprocedural pain (principal); R10.9 Unspecified abdominal pain; R11.0 Nausea; R35.0 Frequency of micturition
CPT/HCPCS: 36415; 74022; 74177; 80048; 84703; 85025; 96361; 96374; 96375; 96376; 99284; J1170; J1885; J2405; Q9967

== ENCOUNTER 2020-04-29 14:40 | Emergency (ER) | payer OTHER, SELFPAY ==
[2020-04-26 13:12] VITALS: BMI 37.4
[2020-04-29 14:46] VITALS: BP 145/102; PULSE 106; RESP 22; TEMP 36.9; O2SAT 98
--- NOTE | 2020-04-29 14:54 | ED_ITS ---
HPI - Recheck/Abnormal Lab/Rx <RADHA Maria - Last Filed: 04/29/20 16:56> General Chief Complaint: Recheck/Abnormal Lab/Rx Stated Complaint: BELLY BUTTON BLEEDING SURGERY 3XWKS Time Seen by Provider: 04/29/20 14:41 Source: patient Mode of arrival: Ambulatory Limitations: no limitations History of Present Illness HPI narrative: The patient is a 34-year-old female nonsmoker with history of incarcerated umbilical hernia with surgery on the of this month who presents with a chief complaint of a dried blood at her umbilical incision. She states that she saw her surgeon on the of this month who reinforced her surgical incision with Steri-Strips. The patient states that she then took a shower the day after the appointment and got all of her Steri-Strips wet. This was by accident. She denies any fevers nausea vomiting diarrhea or abdominal pain. She denies any foul-smelling drainage from her incision. She is concerned about the dried blood that was found on her incision earlier today. Related Data Previous Rx's Medication Instructions Recorded epinephrine [EpiPen] 0.3 mg IM Q15M PRN #1 each 04/10/19 prednisone 60 mg PO DAILY #9 tab 04/10/19 docusate sodium 100 mg PO BID #20 cap 04/14/20 ondansetron HCl [Zofran] 8 mg PO Q8H PRN #5 tab 04/14/20 oxycodone-acetaminophen [Percocet] See Rx Instructions .ROUTE 04/14/20 .COMPLEX PRN #14 tab hydrocodone-acetaminophen 1 tab PO Q6H PRN #10 tab 04/15/20 oxycodone 5 mg tablet 5 mg PO Q8H PRN #10 tab 04/17/20 Allergies Allergy/AdvReac Type Severity Reaction Status Date / Time morphine Allergy Mild itching Verified 04/26/20 13:02 Penicillins Allergy Verified 04/26/20 13:02 shellfish derived Allergy Verified 04/26/20 13:02 Review of Systems <RADHA Maria - Last Filed: 04/29/20 16:56> Review of Systems Narrative: GENERAL: Denies chills, fatigue, malaise, fever, sweats. HEENT: Denies sinus pain, ear pain, sore throat, difficulty swallowing, dizziness. RESPIRATORY: Denies dyspnea, cough, wheezing, hemoptysis, sputum. CARDIOVASCULAR: Denies chest pain, palpitations, orthopnea, edema, GASTROINTESTINAL: Denies nausea, vomiting, abdominal pain, diarrhea, con stipation, melena. : Denies dysuria, frequency, incontinence, hematuria, urinary retention. MUSCULOSKELETAL: denies weakness, joint pain, or bony pain SKIN: See HPI NEUROLOGIC: Denies weakness, headache, numbness, change in speech, confusion, seizures, incoordination. PSYCHIATRIC: No concerning psychosocial issues. 12 point review of systems is negative except for those stated above Patient History <RADHA Maria - Last Filed: 04/29/20 16:56> Surgical History H/O thyroidectomy (Acute) History of (Acute) History of cholecystectomy (Acute) S/P appendectomy (Acute) Social History household members: family Smoking Status: Never smoker Smoking Status: Never smoker alcohol intake frequency: holidays/special occasions only Substance Use Type: does not use Exam <RADHA Maria - Last Filed: 04/29/20 16:56> Narrative Exam Narrative: GENERAL: This is a well-nourished, well-developed patient, no acute distress HEAD: Atraumatic. Normocephalic. No temporal or scalp tenderness. EYES: Pupils equal round and reactive. Extraocular motions intact. No scleral icterus. No injection or drainage. ENT: Nose without bleeding, purulent drainage or septal hematoma. Wearing a mask. Airway patent. CARDIOVASCULAR: Regular rate and rhythm RESPIRATORY: Clear to auscultation. Breath sounds equal bilaterally. No wheezes, rales, or rhonchi. No cough. No increased respiratory effort. No accessory muscle use. GASTROINTESTINAL: Abdomen soft, non-tender, nondistended. No hepato- splenomegaly, or palpable masses. No guarding. Postoperative site at umbilicus, no extending redness, slightly moist and macerated appearing. No purulence drainage, no odor. Damp Steri-Strips barely attached and falling off. No active bleeding. No dried blood noted. EXTREMITIES: No clubbing, cyanosis, or edema. No joint tenderness, effusion, or edema noted. BACK: Nontender without deformity or crepitance. No flank tenderness. NEURO: AOx3. SKIN: See GI exam Initial Vital Signs Initial Vital Signs: Vital Signs Temperature 98.4 F 04/29/20 14:46 Pulse Rate 106 H 04/29/20 14:46 Respiratory Rate 22 04/29/20 14:46 Blood Pressure 145/102 H 04/29/20 14:46 Pulse Oximetry 98 04/29/20 14:46 <Paul Nevarez DO - Last Filed: 04/29/20 17:09> Initial Vital Signs Initial Vital Signs: Vital Signs Temperature 98.4 F 04/29/20 14:46 Pulse Rate 106 H 04/29/20 14:46 Respiratory Rate 22 04/29/20 14:46 Blood Pressure 145/102 H 04/29/20 14:46 Pulse Oximetry 98 04/29/20 14:46 Procedures <RADHA Maria - Last Filed: 04/29/20 16:56> Laceration Repair Laceration 1: Site: other (Postoperative umbilical incision) Pre-repair: wound explored (Cleansed prior to Steri-Strips) Skin layer closed with: steri-strips Scores <RADHA Maria - Last Filed: 04/29/20 16:56> GCS Juan coma scale eye opening: Spontaneous [place] coma scale verbal response: Orientated [place] coma scale motor response: Obey commands Juan coma scale total score: 15 Course <RADHA Maria - Last Filed: 04/29/20 16:56> Orders Ordered: ED Orders 04/29/20 14:52 Wound Culture and Gram Stain Stat Vital Signs Vital signs: Vital Signs - 8 hr 04/29/20 14:46 04/29/20 15:47 Temperature 98.4 F 98.4 F Pulse Rate 106 H 88 Respiratory Rate 22 14 Blood Pressure 145/102 H 132/76 Pulse Oximetry 98 100 <Paul Nevarez DO - Last Filed: 04/29/20 17:09> Orders Ordered: ED Orders 04/29/20 14:52 Wound Culture and Gram Stain Stat Vital Signs Vital signs: Vital Signs - 8 hr 04/29/20 14:46 04/29/20 15:47 Temperature 98.4 F 98.4 F Pulse Rate 106 H 88 Respiratory Rate 22 14 Blood Pressure 145/102 H 132/76 Pulse Oximetry 98 100 [facility] - Recheck/Abnormal Lab/Rx <DMITRY Maria- - Last Filed: 04/29/20 16:56> [facility] Narrative Medical decision making narrative: The patient is a 34-year-old female who presents with a chief complaint of postoperative wound issues with dried blood and Steri-Strips falling off. I reviewed her chart, noted that she was seen by her surgeon in clinic 3 days ago, who reapplied Steri-Strips as the wound. Slightly damp with no signs of infection. Unfortunately patient got the Steri- Strips wet the next day in the shower. Today her wound appears slightly damp, but no signs or symptoms of infection no extending redness, no purulent drainage, the patient denies any systemic symptoms and she is afebrile in the emergency department. Her abdomen is soft and grossly nontender to palpation. I spoke with Dr. Cary by scrub nurse, the patient's surgeon who is in the o perating room at this time. Discussed that incision looks good with no signs of infection no systemic symptoms. Offered to restart area strip and have patient follow-up in clinic. Dr. Cary requested that Dr Nevarez also evaluate the patient to ensure accuracy of assessment. Dr Nevraez kindly saw the patient and confirmed that there are no signs of infection at this time. I cleansed the area, applied new Steri-Strips, discussed at length keeping incision clean and dry. Encouraged follow-up in clinic and continuing to monitor for signs of infection. Patient appeared greatly relieved. No questions or concerns upon discharge and states understanding return precautions as well as follow-up care. Discharge Plan Departure Patient Disposition: Home Clinical Impression: Encounter for postoperative wound check Discharge Date/Time: 04/29/20 15:47 Instructions: How to Care for a Surgical Wound Activity Restrictions/Additional Instructions: Thank you for trusting us with your care today. As discussed, your surgical incision looks great. I reinforced it with you Steri-Strips. Please keep the Steri-Strips clean and dry. Continue to monitor for signs of infection such as increased redness, purulent drainage etcetera. Please follow-up with your surgeon as well as her primary care provider. Please come back to the emergency department for any acute concerns. Prescriptions: No Action oxycodone 5 mg tablet 5 mg PO Q8H PRN (Reason: post operative pain) Qty: 10 RF: 0 prednisone 20 mg tablet 60 mg PO DAILY Qty: 9 RF: 0 epinephrine [EpiPen] 0.3 mg/0.3 mL auto-injector 0.3 mg IM Q15M PRN (Reason: anaphylaxis) Qty: 1 RF: 0 docusate sodium 100 mg capsule 100 mg PO BID Qty: 20 RF: 0 oxycodone-acetaminophen [Percocet] 5-325 mg tablet See Rx Instructions .ROUTE .COMPLEX PRN (Reason: painful procedure) Qty: 14 RF: 0 ondansetron HCl [Zofran] 8 mg tablet 8 mg PO Q8H PRN (Reason: nausea and vomiting) Qty: 5 RF: 0 hydrocodone-acetaminophen 5-325 mg tablet 1 tab PO Q6H PRN (Reason: pain) Qty: 10 RF: 0 Referrals: Last Rico [Primary Care Provider] - Sylvie Cary MD [Physician] - <Paul Nevarez DO - Last Filed: 04/29/20 17:09> [facility] I was immediately available in the department for consultation. This documentation has been reviewed and I agree with assessment and plan. Supervised by Paul Nevarez DO
[2020-04-29 15:47] VITALS: BP 132/76; PULSE 88; RESP 14; TEMP 36.9; O2SAT 100
== END 2020-04-29 15:47 | disposition home or self-care (01) ==
PROVIDERS: Emergency Provider Nurse Practitioner Family; PCP Family Medicine
DX: Z48.00 Encounter for change or removal of nonsurgical wound dressing (principal)
CPT/HCPCS: 87070; 87075; 87077; 87186; 87205; 99281; 99282

== ENCOUNTER → 2020-06-03 09:48 | Outpatient (CLI) | payer OTHER, SELFPAY ==
[2020-04-26 13:12] VITALS: BMI 37.4
[2020-06-04 12:28] LABS: COVID19 Sendout Not Detected (Not Detect)
== END ==
PROVIDERS: PCP Family Medicine; Visit Provider Physician Assistant
DX: R43.0 Anosmia (principal); Z11.59 Encounter for screening for other viral diseases
CPT/HCPCS: 87635

== ENCOUNTER → 2020-08-11 13:10 | Outpatient (CLI) | payer OTHER, SELFPAY ==
[2020-04-26 13:12] VITALS: BMI 37.4
[2020-08-11 13:39] LABS: COVID19 -Nasal RAPID Negative (Negative)
== END ==
PROVIDERS: PCP Family Medicine; Visit Provider Physician Assistant
DX: R09.81 Nasal congestion (principal)
CPT/HCPCS: 87635

== ENCOUNTER 2020-10-29 19:41 | Emergency (ER) | payer OTHER, SELFPAY ==
[2020-04-26 13:12] VITALS: BMI 37.4
[2020-10-29 19:44] VITALS: BP 150/95; PULSE 109; RESP 22; TEMP 36.7; O2SAT 100
[2020-10-29] MEDS: FAMOTIDINE 20 MG/50 ML PIGGYBACK 200 MG IV (20:22)
[2020-10-29] MEDS: diphenhydrAMINE 50 MG/ML VIAL 25 MG IV (20:22)
[2020-10-29] MEDS: SODIUM CHLORIDE 0.9% 1,000 ML 150 ML IV (20:23)
[2020-10-29] MEDS: EPINEPHrine 1 MG/ML 0.5 MG IM (20:24)
[2020-10-29] MEDS: methylPREDNISolone 125 MG/2 ML VIAL IV (20:24)
--- NOTE | 2020-10-29 20:32 | ED_ITS ---
HPI - Allergic Reaction General Chief complaint: Allergic Reaction Stated complaint: Allergic Reaction Time Seen by Provider: 10/29/20 19:52 Source: patient Mode of arrival: Ambulatory Limitations: no limitations History of Present Illness HPI narrative: 35F nonsmoker with history of anxiety and allergic reactions presents with a chief complaint of exposure to unknown allergen followed by the rapid onset of lower lip and throat swelling. She was eating at a [place] restaurant and was exposed to shrimp unknowingly. She administered which she claims was an EpiPen and presented to us. She denies any trouble breathing or the development of rash. She has had no nausea or vomiting and denies diarrhea. MD complaint: allergic reaction Onset (ago): minute(s) Exposure: food Symptoms: lip swelling and difficulty swallowing Severity: moderate Treatment prior to arrival: epinephrine Previous Allergic Reaction History: anaphylaxis Related Data Home Medications Medication Instructions Recorded Confirmed sertraline 50 mg tablet 50 mg PO DAILY 05/30/20 08/11/20 Previous Rx's Medication Instructions Recorded epinephrine [EpiPen] 0.3 mg IM Q15M PRN #1 each 04/10/19 epinephrine [EpiPen 2-Jewel] 0.3 mg IM Q5-15M PRN #2 each 10/29/20 prednisone 20 mg PO DAILY #5 tab 10/29/20 Allergies Allergy/AdvReac Type Severity Reaction Status Date / Time morphine Allergy Mild itching Verified 08/11/20 13:09 Penicillins Allergy Verified 08/11/20 13:09 shellfish derived Allergy Verified 08/11/20 13:09 Review of Systems Constitutional Constitutional: Denies chills, Denies fatigue, Denies fever(s), Denies frequent falls, Denies lethargy and Denies weakness Eyes Eyes: Denies change in vision, Denies eye discharge, Denies irritation and Gen es loss of vision ENT Ears, Nose, Mouth, and Throat: Denies change in voice, Denies dizziness, Reports lip swelling, Denies neck pain, Denies sore throat and Reports throat swelling Cardiovascular Cardiovascular: Denies chest pain, Denies irregular heart rhythm, Denies ligh theadedness, Denies palpitations, Denies dyspnea, Denies dyspnea on exertion and Denies orthopnea Respiratory Respiratory: Denies cough, Denies dyspnea, Denies dyspnea on exertion and Denies wheezing Gastrointestinal Gastrointestinal: Denies abdominal pain, Denies change in bowel habits, Denies diarrhea, Denies nausea and Denies vomiting Musculoskeletal Musculoskeletal: Denies neck pain and Denies numbness Integumentary/Breasts Skin/Breast: Denies pruritus, Denies erythema, Denies rash and Denies wounds Neurologic Neurologic: Denies behavioral changes, Denies confusion, Denies dizziness, Denies frequent falls, Denies loss of vision, Denies numbness and Denies weakness Psychiatric Psychiatric: Denies anxiety, Denies behavioral changes, Denies confusion, Denies depression, Denies homicidal ideation and Denies suicidal ideation Endocrine Endocrine: Denies fatigue, Denies flushing and Denies palpitations Hematologic/Lymphatic Hematologic/Lymphatic: Denies easy bruising Allergic/Immunologic Allergic/Immunologic: Denies urticaria, Reports lip swelling, Reports throat swelling and Denies wheezing Patient History Surgical History H/O thyroidectomy History of History of cholecystectomy S/P appendectomy Social History household members: family Smoking Status: Never smoker Smoking Status: Never smoker alcohol intake frequency: holidays/special occasions only Substance Use Type: does not use Exam Narrative Exam Narrative: GENERAL: [35] year old patient appears stated age. Well- nourished, well-developed patient, in mild distress. HEAD: Atraumatic. Normocephalic. EYES: Pupils equal round and reactive. Extraocular motions intact. No scleral icterus. No injection or drainage. ENT: Nose without bleeding, purulent drainage. Throat without erythema, tonsillar hypertrophy or exudate. Airway patent. No lip, facial or throat swelling obvious NECK: Trachea midline. Non tender CARDIOVASCULAR: Regular rate and rhythm without murmurs, gallops, or rubs. RESPIRATORY: Clear to auscultation. Breath sounds equal bilaterally. No wheezes, rales, or rhonchi. GASTROINTESTINAL: Abdomen soft, non-tender, nondistended. EXTREMITIES: No edema or joint tenderness. BACK: Nontender without deformity or crepitance. No flank tenderness. NEURO: AOx3. SKIN: No rash or erythema of visible areas. No hives Initial Vital Signs Initial Vital Signs: Vital Signs Temperature 98.0 F 10/29/20 19:44 Pulse Rate 109 H 10/29/20 19:44 Respiratory Rate 22 10/29/20 19:44 Blood Pressure 150/95 H 10/29/20 19:44 Pulse Oximetry 100 10/29/20 19:44 Course Orders Ordered: Discontinued Medications Diphenhydramine HCl (Diphenhydramine 50 Mg/Ml Vial) 25 mg IV NOW ONE Stop: 10/29/20 19:53 Last Admin: 10/29/20 20:22 Dose: 25 mg Documented by: GAUDENCIO Epinephrine HCl (Epinephrine 1 Mg/Ml) 0.5 mg IM NOW ONE Stop: 10/29/20 20:24 Last Admin: 10/29/20 20:24 Dose: 0.5 mg Documented by: GAUDENCIO Famotidine (Pepcid) 20 mg in 50 mls @ 200 mls/hr IV NOW ONE Stop: 10/29/20 20:06 Last Infusion: 10/29/20 21:20 Dose: 0 mls/hr Documented by: Admin: 10/29/20 20:22 Dose: 200 mls/hr Documented by: GAUDENCIO Sodium Chloride (Normal Saline 0.9%) 1,000 mls @ 150 mls/hr IV CONT FLAQUITA Last Infusion: 10/29/20 21:00 Dose: 0 mls/hr Documented by: Admin: 10/29/20 20:23 Dose: 150 mls/hr Documented by: GAUDENCIO Dexamethasone 20 mg/ Sodium (Chloride) 52 mls @ 208 mls/hr IV NOW ONE Stop: 10/29/20 19:53 Last Admin: 10/29/20 20:23 Dose: Not Given Documented by: GAUDENCIO Methylprednisolone (Methylprednisolone 125 Mg/2 Ml Vial) 125 mg IV NOW ONE Stop: 10/29/20 20:24 Last Admin: 10/29/20 20:24 Dose: 125 mg Documented by: GAUDENCIO Reevaluation(s) Reevaluation #1: Patient still feeling some symptoms on arrival and initially given steroid and Benadryl. Reevaluation #2: Patient feeling an abnormal sensation difficulty swallowing, epinephrine read does Reevaluation #3: Patient observed for 2 hours with out symptoms. She is feeling quite well and requesting discharge. Return precautions given and questions answered to her apparent satisfaction Vital Signs Vital signs: Vital Signs - 8 hr 10/29/20 19:44 Temperature 98.0 F Pulse Rate 109 H Respiratory Rate 22 Blood Pressure 150/95 H Pulse Oximetry 100 Discharge Plan Departure Patient Disposition: Home Clinical Impression: Allergic reaction Qualifiers: Encounter type: initial encounter Qualified Code(s): T78.40XA - Allergy, unspecified, initial encounter Instructions: DI for General Allergic Reactions Activity Restrictions/Additional Instructions: *You have been diagnosed with [allergic reaction] *What to do: *Take medications as directed: A given you a prescription for a steroid as well as epi pens. Please consider the use of [id number] antihistamines such as Benadryl and Pepcid *Follow up with your primary care provider in 2-3 days, call for an appointment. Let them know you were seen in the Emergency Department and that we ask that you be seen in follow up *Return to ER if you should have any new, worsening or concerning symptoms Prescriptions: New prednisone 20 mg tablet 20 mg PO DAILY Qty: 5 RF: 0 epinephrine [EpiPen 2-Jewel] 0.3 mg/0.3 mL auto-injector 0.3 mg IM Q5-15M PRN (Reason: anaphylaxis) Qty: 2 RF: 0 No Action sertraline [Zoloft] 50 mg tablet 50 mg PO DAILY RF: 0 epinephrine [EpiPen] 0.3 mg/0.3 mL auto-injector 0.3 mg IM Q15M PRN (Reason: anaphylaxis) Qty: 1 RF: 0 Referrals: Last Rico MD [Primary Care Provider] -
[2020-10-29 20:45] VITALS: BP 129/73; PULSE 98; RESP 20; O2SAT 98
[2020-10-29 21:20] VITALS: BP 146/99; PULSE 100; RESP 18; O2SAT 99
[2020-10-29 21:35] VITALS: BP 138/72; PULSE 104; RESP 16; O2SAT 98
== END 2020-10-29 21:36 | disposition home or self-care (01) ==
PROVIDERS: Emergency Provider Emergency Medicine; PCP Family Medicine
DX: T78.40XA Allergy, unspecified, initial encounter (principal); R22.0 Localized swelling, mass and lump, head
CPT/HCPCS: 96365; 96372; 96375; 99284; J0171; J1200; J2930

== ENCOUNTER 2020-12-07 22:20 | Emergency (ER) | payer OTHER, SELFPAY ==
[2020-04-26 13:12] VITALS: BMI 37.4
[2020-12-07 22:31] VITALS: BP 143/64; PULSE 90; RESP 17; TEMP 37; O2SAT 98; BMI 36.6
--- NOTE | 2020-12-07 23:20 | ED.DENTAL ---
HPI - Dental/Oral General Chief complaint: Dental/Oral Stated complaint: ABSCESSED TOOTH Time Seen by Provider: 12/07/20 22:49 Source: patient Mode of arrival: Ambulatory Limitations: no limitations History of Present Illness HPI Narrative: Patient is a 35-year-old female who presents with dental pain. She had a root canal yesterday on the right upper side. Did does notice a small abscess is she was started on clindamycin today she has taken 2 doses. However she said last night she noticed increasing swelling throughout the day she has had increasing pain. No fever or chills. She is able to open her mouth still but she is noticeably more swollen on the right side Teeth map: 1. No dental abscess Onset (ago): day(s) (1) Related Data Home Medications Medication Instructions Recorded Confirmed sertraline 50 mg tablet 50 mg PO DAILY 05/30/20 08/11/20 Previous Rx's Medication Instructions Recorded epinephrine [EpiPen] 0.3 mg IM Q15M PRN #1 each 04/10/19 epinephrine [EpiPen 2-Jewel] 0.3 mg IM Q5-15M PRN #2 each 10/29/20 prednisone 20 mg PO DAILY #5 tab 10/29/20 hydrocodone-acetaminophen 1 tab PO Q6H PRN #10 tab 12/07/20 Allergies Allergy/AdvReac Type Severity Reaction Status Date / Time morphine Allergy Mild itching Verified 08/11/20 13:09 Penicillins Allergy Verified 08/11/20 13:09 shellfish derived Allergy Verified 08/11/20 13:09 Review of Systems Review of Systems Narrative: GENERAL: Denies chills,fever HEENT: See HPI RESPIRATORY: Denies dyspnea, cough, wheezing CARDIOVASCULAR: Denies chest pain, palpitations GASTROINTESTINAL: Denies nausea, vomiting MUSCULOSKELETAL: Denies extremity pain, injury SKIN: No rash, no laceration, no pruritus NEUROLOGIC: Denies weakness, dizziness, headache, numbness 8 point review of systems is negative except for those stated above and HPI Patient History Surgical History H/O thyroidectomy History of History of cholecystectomy S/P appendectomy Social History household members: family Smoking Status: Never smoker Smoking Status: Never smoker alcohol intake frequency: holidays/special occasions only Substance Use Type: does not use Exam Initial Vital Signs Initial Vital Signs: Vital Signs Temperature 98.6 F 12/07/20 22:31 Pulse Rate 90 12/07/20 22:31 Respiratory Rate 17 12/07/20 22:31 Blood Pressure 143/64 H 12/07/20 22:31 Pulse Oximetry 98 12/07/20 22:31 GENERAL: Well-appearing, well-nourished and in no acute distress. hEENT: Mild right-sided facial swelling no trismus extraocular muscles intact is a no significant periorbital swelling. No dental abscess noted no erythema CARDIOVASCULAR: peripheral pulses in tact, cap refill <2 sec RESPIRATORY: No respiratory distress, speaks in full sentences without difficulty EXTREMITIES: Normal range of motion, no clubbing or edema. Neurovascularly intact NEUROLOGICAL: Cranial nerves II through XII grossly intact. Normal gait and speech. SKIN: Warm, dry, no petechiae, no rashes or lesions. Course Orders Ordered: Discontinued Medications Hydrocodone Bitart/Acetaminophen (Hydrocodone/Acet 5/325 Prepack) 1 bottle MISC SEEINSTR ONE Stop: 12/07/20 23:25 Last Admin: 12/07/20 23:34 Dose: 1 bottle Documented by: BROOKE Vital Signs Vital signs: Vital Signs - 8 hr 12/07/20 22:31 12/07/20 23:34 Temperature 98.6 F Pulse Rate 90 90 Respiratory Rate 17 16 Blood Pressure 143/64 H 124/85 Pulse Oximetry 98 99 MDM - Dental/Oral MDM Narrative Medical decision making narrative: Patient does seem to be in quite a bit of pain. She obviously has swelling of her face. She likely needs to be on clindamycin longer than 2 doses she is allergic to penicillin. I have given her strict return precautions Discharge Plan Departure Patient Disposition: Home Clinical Impression: Pain, dental Instructions: Tooth Abscess Activity Restrictions/Additional Instructions: *You have been diagnosed with dental pain *What to do: At this time he likely need longer on antibiotics. Please give the antibiotics at least 2-3 days. *Continue to take medications as directed [place] 1 tablet every 6 hours if needed for severe pain--> SENT TO [facility] IN [place] Ibuprofen 800 mg every 8 hours with food *Follow up with your primary care provider in 2-3 days *Return to ER if you should have increasing facial swelling, redness, inability to open mouth or any new, worsening or concerning symptoms CONTROLLED SUBSTANCE DISCHARGE (Narcotoic/benzodiazepine/Flexeril/Phenergan) 1. You have been prescribed narcotic medications, it does have acetaminophen/Tylenol/paracetamol in it, DO NOT TAKE MORE THAN 4,00mg in 24 hours of Tylenol. TRAMADOL DOES NOT CONTAIN TYLENOL 2. Please understand that we cannot provide further refills of narcotics, benzodiazepines or controlled substances through the ED and her pain management will need to be through your provider. 3. While on these medications you cannot drive or operate heavy machinery. 4. You cannot sign legal documents or perform any duties such as this. 5. As long as you're taking opiate pain medications he should also be taking a stool softener such as Colace, Dulcolax, MiraLAX or prune juice, to help avoid constipation. Prescriptions: New hydrocodone-acetaminophen 5-325 mg tablet 1 tab PO Q6H PRN (Reason: pain) Qty: 10 RF: 0 No Action sertraline [Zoloft] 50 mg tablet 50 mg PO DAILY RF: 0 prednisone 20 mg tablet 20 mg PO DAILY Qty: 5 RF: 0 epinephrine [EpiPen 2-Jewel] 0.3 mg/0.3 mL auto-injector 0.3 mg IM Q5-15M PRN (Reason: anaphylaxis) Qty: 2 RF: 0 epinephrine [EpiPen] 0.3 mg/0.3 mL auto-injector 0.3 mg IM Q15M PRN (Reason: anaphylaxis) Qty: 1 RF: 0 Referrals: Last Rico MD [Primary Care Provider] -
[2020-12-07 23:34] VITALS: BP 124/85; PULSE 90; RESP 16; O2SAT 99
[2020-12-07] MEDS: HYDROCODONE/ACET 5/325 PREPACK 1 BOTTLE MISC (23:34)
== END 2020-12-07 23:35 | disposition home or self-care (01) ==
PROVIDERS: Emergency Provider Emergency Medicine; PCP Family Medicine
DX: K08.89 Other specified disorders of teeth and supporting structures (principal)
CPT/HCPCS: 99281; 99283

== ENCOUNTER 2021-04-10 21:21 | Emergency (ER) | payer OTHER, SELFPAY ==
[2020-04-26 13:12] VITALS: BMI 37.4
[2021-04-10 21:25] VITALS: BP 181/77; PULSE 93; RESP 22; TEMP 37.3; O2SAT 98
--- NOTE | 2021-04-10 21:28 | DI.RAD.S_ITS ---
PROCEDURE: XR CHEST 1V INDICATIONS: chest pain TECHNIQUE: One view of the chest was acquired. COMPARISON: None. FINDINGS: Surgical changes and devices: None. Lungs and pleura: Lungs are clear. No pleural effusions or pneumothorax. Mediastinum: Mediastinal contours appear normal. Heart size is normal. Bones and chest wall: No suspicious bony lesions. Overlying soft tissues appear unremarkable. IMPRESSION: No acute cardiopulmonary disease process. Dictated by: Rosina Duenas MD, PhD on 04/11/2021 at 7:44 Approved by: Rosina Duenas MD, PhD on 04/11/2021 at 7:44
[2021-04-10 21:54] LABS: Add Manual Diff / Slide Review NO; Basophils Absolute Auto 100 /uL (0-100); Basophils Percent Auto 1.4 % (0-2); Eosinophils Absolute Auto 300 /uL (0-450); Eosinophils Percent Auto 3.3 % (2-4); Hematocrit 38.1 % (36-46); Hemoglobin 12.8 g/dL (12.0-16.0); Lymphocytes Absolute Auto 3200 /uL (1100-4500); Lymphocytes Percent Auto 33.9 % (25-40); Mean Corpuscular HGB Conc 33.5 % (30-36); Mean Corpuscular Hemoglobin 27.6 PG (26-34); Mean Corpuscular Volume 82.3 fL (80-100); Monocytes Absolute Auto 800 /uL (0-900); Monocytes Percent Auto 8.6 % (3-14); Neutrophils Absolute Auto 4900 /uL (1500-7000); Neutrophils Percent Auto 52.8 % (50-75); Platelet Count 325 X10^3/uL (150-400); Red Blood Cell Count 4.63 X10^6/uL (4.0-5.2); Red Cell Distribution Width 14.1 % (11.6-14.8); White Blood Cell Count 9.4 X10^3/uL (4.5-11.0)
[2021-04-10 22:06] LABS: Alanine Aminotransferase 45 IU/L (<35); Albumin 4.2 g/dL (3.5-5.0); Albumin Globulin Ratio 1.4 (1.0-2.8); Alkaline Phosphatase 62 U/L (38-126); Aspartate Aminotransferase 29 IU/L (14-36); BUN Creatinine Ratio 8.2 (6-22); Bilirubin Total 0.2 mg/dL (0.2-1.3); Blood Urea Nitrogen 8 mg/dL (7-17); Calcium 8.7 mg/dL (8.4-10.2); Carbon Dioxide 29 mmol/L (22-32); Chloride 105 mmol/L (98-107); Creatine Kinase 60 U/L (30-135); Estimated Glomerular Filt Rate > 60.0 mL/min (>60); Globulin 3.1 g/dL (1.7-4.1); Glucose 97 mg/dL (70-100); HEMOLYSIS < 15 (0-50); Lipase 237 U/L (23-300); Potassium 3.6 mmol/L (3.4-5.1); Sodium 140 mmol/L (137-145); Total Protein 7.3 g/dL (6.3-8.2)
[2021-04-10 22:18] LABS: Troponin I < 0.012 ng/mL (0.01-0.034)
--- NOTE | 2021-04-10 23:32 | ED_ITS ---
HPI - Arrhythmia/Palpitations General Chief Complaint: Arrhythmia/Palpitations Stated Complaint: extreme heart palpitations Time Seen by Provider: 04/10/21 21:35 Source: patient Mode of arrival: Ambulatory History of Present Illness HPI narrative: 35-year-old female nonsmoker with noncontributory medical history presents with a chief complaint of episodes of palpitations over the course of the day. She states she has had severe heart pounding and a rapid heart rate in the absence of any significant chest pain or shortness of breath. She is not dizzy nor weak or lightheaded. She denies any nausea vomiting. She denies any recent travel or history of blood clots. She denies any change in medications or diet. 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 Related Data Home Medications Medication Instructions Recorded Confirmed sertraline 50 mg tablet (Zoloft) 50 mg PO DAILY 05/30/20 08/11/20 Previous Rx's Medication Instructions Recorded epinephrine 0.3 mg/0.3 mL 0.3 mg IM Q15M PRN #1 each 04/10/19 injection, auto-injector (EpiPen) epinephrine 0.3 mg/0.3 mL 0.3 mg IM Q5-15M PRN #2 each 10/29/20 injection, auto-injector (EpiPen 2-Jewel) prednisone 20 mg tablet 20 mg PO DAILY #5 tab 10/29/20 hydrocodone 5 mg-acetaminophen 325 1 tab PO Q6H PRN #10 tab 12/07/20 mg tablet Allergies Allergy/AdvReac Type Severity Reaction Status Date / Time morphine Allergy Mild itching Verified 08/11/20 13:09 Penicillins Allergy Verified 08/11/20 13:09 shellfish derived Allergy Verified 08/11/20 13:09 Review of Systems Review of Systems Narrative: GENERAL: Denies chills, fatigue, malaise, fever, sweats. HEENT: Denies sinus pain, ear pain, sore throat, difficulty swallowing, dizziness. RESPIRATORY: Denies dyspnea, cough, wheezing, hemoptysis, sputum. CARDIOVASCULAR: See HPI GASTROINTESTINAL: Denies nausea, vomiting, abdominal pain, diarrhea, constipation, melena. : Denies dysuria, frequency, incontinence, hematuria, urinary retention. MUSCULOSKELETAL: denies weakness, joint pain, or bony pain SKIN: Denies rash, skin lesions, or other NEUROLOGIC: Denies weakness, headache, numbness, change in speech, confusion, seizures, incoordination. PSYCHIATRIC: No concerning psychosocial issues. 12 point review of systems is negative except for those stated above Patient History Surgical History H/O thyroidectomy History of History of cholecystectomy S/P appendectomy Social History household members: family Smoking Status: Never smoker Smoking Status: Never smoker alcohol intake frequency: holidays/special occasions only Substance Use Type: does not use Exam Narrative Exam Narrative: GENERAL: [35 year old patient appears stated age. Well-developed patient, in mild distress. HEAD: Atraumatic. Normocephalic. EYES: Pupils equal round and reactive. Extraocular motions intact. No scleral icterus. No injection or drainage. ENT: Nose without bleeding, purulent drainage. Throat without erythema, tonsillar hypertrophy or exudate. Airway patent. NECK: Trachea midline. Non tender CARDIOVASCULAR: Regular rate and rhythm without murmurs, gallops, or rubs. RESPIRATORY: Clear to auscultation. Breath sounds equal bilaterally. No wheezes, rales, or rhonchi. GASTROINTESTINAL: Abdomen soft, non-tender, nondistended. EXTREMITIES: No edema or joint tenderness. BACK: Nontender without deformity or crepitance. No flank tenderness. NEURO: AOx3. SKIN: No rash or erythema of visible areas Initial Vital Signs Initial Vital Signs: Vital Signs Temperature 99.1 F 04/10/21 21:25 Pulse Rate 93 H 04/10/21 21:25 Respiratory Rate 22 04/10/21 21:25 Blood Pressure 181/77 H 04/10/21 21:25 Pulse Oximetry 98 04/10/21 21:25 Course Orders Ordered: ED Orders 04/10/21 21:28 XR chest 1V Stat 04/10/21 21:35 EKG-12 Lead Stat 04/10/21 21:40 Complete Blood Count AUTO DIFF Stat Comprehensive Metabolic Panel Stat Lipase Stat Troponin & CK Cardiac Panel Stat Vital Signs Vital signs: Vital Signs - 8 hr 04/10/21 21:25 04/11/21 01:02 Temperature 99.1 F Pulse Rate 93 H 69 Respiratory Rate 22 16 Blood Pressure 181/77 H 110/64 Pulse Oximetry 98 100 MDM - Arrhythmia/Palpitations Lab Data Result diagrams: 04/10/21 21:40 04/10/21 21:40 Labs: Lab Results 04/10/21 04/10/21 Range/Units 21:40 21:40 WBC 9.4 (4.5-11.0) X10^3/uL RBC 4.63 (4.0-5.2) X10^6/uL Hgb 12.8 (12.0-16.0) g/dL Hct 38.1 (36-46) % MCV 82.3 (80-100) fL MCH 27.6 (26-34) PG MCHC 33.5 (30-36) % RDW 14.1 (11.6-14.8) % Plt Count 325 (150-400) X10^3/uL Neut % (Auto) 52.8 (50-75) % Lymph % (Auto) 33.9 (25-40) % [place] % (Auto) 8.6 (3-14) % Eos % (Auto) 3.3 (2-4) % Baso % (Auto) 1.4 (0-2) % Neut # (Auto) 4900 (3262-9183) /uL Lymph # (Auto) 3200 (5627-4883) /uL [place] # (Auto) 800 (0-900) /uL Eos # (Auto) 300 (0-450) /uL Baso # (Auto) 100 (0-100) /uL Sodium 140 (137-145) mmol/L Potassium 3.6 (3.4-5.1) mmol/L Chloride 105 (98-107) mmol/L Carbon Dioxide 29 (22-32) mmol/L BUN 8 (7-17) mg/dL Creatinine 0.97 (0.52-1.04) mg/dL Estimated GFR > 60.0 (>60) mL/min BUN/Creatinine Ratio 8.2 (6-22) Glucose 97 (70-100) mg/dL Calcium 8.7 (8.4-10.2) mg/dL Total Bilirubin 0.2 (0.2-1.3) mg/dL AST 29 (14-36) IU/L ALT 45 H (<35) IU/L Alkaline Phosphatase 62 (38-126) U/L Total Creatine Kinase 60 (30-135) U/L CK-MB (CK-2) TNP CK-MB (CK-2) Rel Index TNP Troponin I < 0.012 (0.01-0.034) ng/mL Total Protein 7.3 (6.3-8.2) g/dL Albumin 4.2 (3.5-5.0) g/dL Globulin 3.1 (1.7-4.1) g/dL Albumin/Globulin Ratio 1.4 (1.0-2.8) Lipase 237 (23-300) U/L ECG Data Interpretation: EKG is normal sinus rhythm rate [ 89] and free of any signs of ischemia or ectopy. No ST segmental elevation or depression. No T wave inversions MDM Narrative Medical decision making narrative: Multiple etiologies for patient's symptoms considered including: [SVT versus other arrhythmia versus electrolyte abnormality versus stress response versus anxiety versus other Patient's symptoms improved over duration of stay with above-stated therapies. Findings and discharge diagnosis discussed with patient/family followed by verbalization of understanding Return precautions discussed with patient/family whom verbalize understanding. Discharge Plan Departure Patient Disposition: Home Clinical Impression: Heart palpitations Instructions: DI for Arrhythmias Activity Restrictions/Additional Instructions: *You have been diagnosed with [palpitations, very reassuring physical exam, EKG and lab work *What to do: *Please continue to take your regular medications as directed. [ ] New medication prescriptions sent to your pharmacy: [ ] [ ] New medication written as a paper prescription [x ] No new medications given *Please follow up with your primary care provider in 2-3 days, call for an appointment. Let them know you were seen in the Emergency Department and that we ask that you be seen in follow up. We will electronically transmit a record of today's note if your PCP is in our system *If you do not have a primary care provider please contact the [facility] Resource line at [phone]. They will ask some questions about your medical history and help get you set up with a doctor in the community. *Return to Emergency Department if you should have any new, worsening or concerning symptoms, such as [fever greater than 101 F, shaking chills, worsening pain, persistent vomiting or other bothersome symptoms] Prescriptions: No Action sertraline [Zoloft] 50 mg tablet 50 mg PO DAILY RF: 0 prednisone 20 mg tablet 20 mg PO DAILY Qty: 5 RF: 0 epinephrine [EpiPen 2-Jewel] 0.3 mg/0.3 mL auto-injector 0.3 mg IM Q5-15M PRN (Reason: anaphylaxis) Qty: 2 RF: 0 hydrocodone-acetaminophen 5-325 mg tablet 1 tab PO Q6H PRN (Reason: pain) Qty: 10 RF: 0 epinephrine [EpiPen] 0.3 mg/0.3 mL auto-injector 0.3 mg IM Q15M PRN (Reason: anaphylaxis) Qty: 1 RF: 0 Referrals: Last Rico MD [Primary Care Provider] -
[2021-04-11 01:02] VITALS: BP 110/64; PULSE 69; RESP 16; O2SAT 100
== END 2021-04-11 01:00 | disposition home or self-care (01) ==
PROVIDERS: Emergency Provider Emergency Medicine; PCP Family Medicine
DX: R00.2 Palpitations (principal); R07.9 Chest pain, unspecified
CPT/HCPCS: 36415; 71045; 80053; 82550; 83690; 84484; 85025; 93005; 99281; 99284

== ENCOUNTER 2022-04-24 20:33 | Emergency (ER) | payer OTHER, SELFPAY ==
[2020-04-26 13:12] VITALS: BMI 37.4
[2022-04-24] VITALS (7 sets, daily range): BP systolic 124–158; BP diastolic 62–80; PULSE 49–100; RESP 22; TEMP 36.4; O2SAT 96–98; BMI 33.8
--- NOTE | 2022-04-24 22:41 | PC.NURSE ---
Patient reports feeling much improved. No resp distress noted. Patient speaking in full sentences. VDC signed
== END 2022-04-24 22:44 | disposition left against medical advice (07) ==
PROVIDERS: Emergency Provider Emergency Medicine; PCP Family Medicine
CPT/HCPCS: 99281

== ENCOUNTER 2022-05-08 02:17 | Emergency (ER) | payer OTHER, SELFPAY ==
[2020-04-26 13:12] VITALS: BMI 37.4
[2022-05-08 02:26] VITALS: BP 176/84; PULSE 103; RESP 20; TEMP 36.6; O2SAT 96; BMI 34.7
--- NOTE | 2022-05-08 02:27 | DI.RAD.S_ITS ---
PROCEDURE: XR CHEST 2V INDICATIONS: cough, history of pneumonia TECHNIQUE: 2 views of the chest were acquired. COMPARISON: [facility], CR, XR CHEST 1V, 04/10/2021, 22:00. FINDINGS: Surgical changes and devices: None. Lungs and pleura: Lungs are clear. No pleural effusions or pneumothorax. Mediastinum: Mediastinal contours are normal. Heart size is normal. Bones and chest wall: No suspicious bony abnormalities. Soft tissues appear unremarkable. IMPRESSION: No acute cardiopulmonary abnormality. Dictated by: Ankur Ovalles M.D. on 05/08/2022 at 8:01 Approved by: Ankur Ovalles M.D. on 05/08/2022 at 8:01
--- NOTE | 2022-05-08 04:05 | ED_ITS ---
HPI - URI/Sore Throat General Chief Complaint: Upper Respiratory Symptoms Stated Complaint: possible pnemonia Time Seen by Provider: 05/08/22 02:26 Source: patient Mode of arrival: Ambulatory History of Present Illness HPI Narrative: 36-year-old female nonsmoker without any significant chronic medical history presents with family in the chief complaint of 5-7 days of typical upper respiratory symptoms including runny nose, nasal congestion, sneezing, sore throat, cough and body aches. She is had no fever or chills. She denies any chest pain or shortness of breath. Her cough is dry and hacking. She has coughed so hard it makes her vomit on occasion. She denies any abdominal pain. She has no headache, blurred vision. 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 Related Data Home Medications Medication Instructions Recorded Confirmed sertraline 50 mg tablet (Zoloft) 50 mg PO DAILY 05/30/20 08/11/20 Previous Rx's Medication Instructions Recorded epinephrine 0.3 mg/0.3 mL 0.3 mg (0.3 mL) IM Q15M PRN 04/10/19 injection, auto-injector (EpiPen) anaphylaxis 3 doses #1 ea epinephrine 0.3 mg/0.3 mL 0.3 mg (0.3 mL) IM Q5-15M PRN 10/29/20 injection, auto-injector (EpiPen anaphylaxis #2 ea 2-Jewel) prednisone 20 mg tablet 20 mg PO DAILY #5 tabs 10/29/20 hydrocodone 5 mg-acetaminophen 325 1 tab PO Q6H PRN pain #10 tabs 12/07/20 mg tablet cyclobenzaprine 10 mg tablet 10 mg PO TID PRN muscle spasm #14 05/08/22 tabs lidocaine 5 % topical patch 1 patch topical DAILY #15 ea 05/08/22 (Lidoderm) ondansetron 4 mg disintegrating 4 mg PO TID-QID PRN nausea and 05/08/22 tablet vomiting #10 tabs promethazine 6.25 mg-codeine 10 5 ml PO Q4-6H PRN cough #473 mL 05/08/22 mg/5 mL syrup Allergies Allergy/AdvReac Type Severity Reaction Status Date / Time morphine Allergy Mild itching Verified 01/02/21 13:09 Penicillins Allergy Verified 08/11/20 13:09 shellfish derived Allergy Verified 08/11/20 13:09 Review of Systems Review of Systems Narrative: GENERAL: See HPI HEENT: See HPI RESPIRATORY: See HPI CARDIOVASCULAR: Denies chest pain, palpitations, orthopnea, edema, GASTROINTESTINAL: See HPI : Denies dysuria, frequency, incontinence, hematuria, urinary retention. MUSCULOSKELETAL: denies weakness, joint pain, or bony pain SKIN: Denies rash, skin lesions, or other NEUROLOGIC: Denies weakness, headache, numbness, change in speech, confusion, seizures, incoordination. PSYCHIATRIC: No concerning psychosocial issues. 12 point review of systems is negative except for those stated above Patient History Surgical History H/O thyroidectomy History of History of cholecystectomy S/P appendectomy Social History household members: family Smoking Status: Never smoker Smoking Status: Never smoker alcohol intake frequency: holidays/special occasions only Substance Use Type: does not use Exam Narrative Exam Narrative: GENERAL: [36] year old patient appears stated age. Well-developed patient, in mild distress. HEAD: Atraumatic. Normocephalic. EYES: Pupils equal round and reactive. Extraocular motions intact. No scleral icterus. No injection or drainage. ENT: Nasal congestion, clear drainage bilaterally, large amount of post pharyngeal drainage, no tonsillar swelling, erythema or exudate, no lymphadenopathy. Moist mucous membranes NECK: Trachea midline. No meningeal signs, she does have tenderness and right- sided paraspinal musculature into her traps and posterior shoulder that is worse with recruitment of the muscle group and palpation, no change with axial load, negative Brudzinski's and Kernig's CARDIOVASCULAR: Regular rate and rhythm without murmurs, gallops, or rubs. RESPIRATORY: Clear to auscultation. Breath sounds equal bilaterally. No wheezes, rales, or rhonchi. GASTROINTESTINAL: Abdomen soft, non-tender, nondistended. EXTREMITIES: No edema or joint tenderness. BACK: Nontender without deformity or crepitance. No flank tenderness. NEURO: AOx3. SKIN: No rash or erythema of visible areas Initial Vital Signs Initial Vital Signs: Vital Signs Temperature 97.9 F 05/08/22 02:26 Pulse Rate 103 H 05/08/22 02:26 Respiratory Rate 20 05/08/22 02:26 Blood Pressure 176/84 H 05/08/22 02:26 Pulse Oximetry 96 05/08/22 02:26 Oxygen Delivery Method 05/08/22 02:26 Course Orders Ordered: Discontinued Medications Acetaminophen/Codeine Phosphate (Acetaminophen/Codeine Soln 5 Ml Solution) 5 ml PO NOW ONE Stop: 05/08/22 03:36 Last Admin: 05/08/22 04:15 Dose: 5 ml Documented By: CHET Albuterol (Albuterol Hfa Prepack) 1 box MISC SEEINSTR ONE Stop: 05/08/22 03:36 Last Admin: 05/08/22 04:15 Dose: 1 box Documented By: CHET Cyclobenzaprine HCl (Cyclobenzaprine 10 Mg Prepack) 1 bottle MISC SEEINSTR ONE Stop: 05/08/22 03:36 Last Admin: 05/08/22 04:15 Dose: 1 bottle Documented By: CHET Lidocaine (Lidocaine Patch 1 Each Adh..Patch) 1 each TOP NOW ONE Stop: 05/08/22 03:36 Last Admin: 05/08/22 04:15 Dose: 1 each Documented By: CHET Vital Signs Vital signs: Vital Signs - 8 hr 05/08/22 02:26 Temperature 97.9 F Pulse Rate 103 H Respiratory Rate 20 Blood Pressure 176/84 H Pulse Oximetry 96 Oxygen Delivery Method Room Air MDM - URI/Sore Throat Lab Data Labs: Lab Results 05/08/22 Range/Units 03:20 Chlamy pneumoniae PCR Not detected (Not Detect) Adenovirus (PCR) Not detected (Not Detect) B. pertussis DNA (PCR) Not detected (Not Detecte) B.parapertussis DNA PCR Not detected (Not Detecte) Coronavirus OC43 (PCR) Not detected (Not Detect) Coronavirus HKU1 (PCR) Not detected (Not Detect) Coronavirus 229E (PCR) Not detected (Not Detect) SARS-CoV-2 (PCR) Not detected (Not Detecte) Coronavirus NL63 (PCR) Not detected (Not Detect) Human Metapneumovir PCR Not detected (Not Detect) Influenza Type A (PCR) Not detected (Not Detect) Influenza Type B (PCR) Not detected (Not Detect) M. pneumoniae (PCR) Not detected (Not Detect) Parainfluenza 1 (PCR) Not detected (Not Detect) Parainfluenza 2 (PCR) Not detected (Not Detect) Parainfluenza 3 (PCR) Not detected (Not Detect) Parainfluenza 4 (PCR) Not detected (Not Detect) RSV (PCR) Not detected (Not Detect) Entero/Rhino (PCR) Not detected (Not Detect) Point of Care Testing Test Results Negative Urine Dip Bedside Urine Glucose Negative Bedside Urine Bilirubin - Negative Bedside Urine Ketone - Negative Urine Specific [place] 1.020 Bedside Urine Occult Blood + Bedside Urine pH 6.0 Bedside Urine Protein - Negative Bedside Urine Urobilinogen - Negative Bedside Urine Nitrite - Negative Bedside Urine Leukocytes - Negative Esterase Imaging Data Chest x-ray: Radiologist's Impression: [address] [address] XRay Report Signed Patient: Viji Cash MR#: [id number] : 1985 Acct:[id number] Age/Sex: 36 / F Date of Service: 05/08/22 Loc: ED Accession Number: [id number] ?? Procedure: XR chest 2V Ordering Provider: Paul Nevarez D.O. PROCEDURE:? XR CHEST 2V ? INDICATIONS:? cough, history of pneumonia ? TECHNIQUE:? 2 views of the chest were acquired.? ? COMPARISON:? [facility], , XR CHEST 1V, 04/10/2021, 22:00. ? FINDINGS:? ? Surgical changes and devices:? None.? ? Lungs and pleura:? Lungs are clear.? No pleural effusions or pneumothorax.? ? Mediastinum:? Mediastinal contours are normal.? Heart size is normal.? ? Bones and chest wall:? No suspicious bony abnormalities.? Soft tissues appear unremarkable.? ? IMPRESSION:? No acute cardiopulmonary abnormality. ? ? Dictated by: Ankur Ovalles M.D. on 05/08/2022 at 8:01 ? ? Approved by: Ankur Ovalles M.D. on 05/08/2022 at 8:01 ? MDM Narrative Medical decision making narrative: Well-appearing healthy female with typical URI symptoms. She has no use of accessory muscles or hypoxemia. Vital signs are stable, chest x-ray shows no pneumonia. Extensive discussion with patient about various medications including [id number] treatments, return precautions given and questions answered to her apparent satisfaction Discharge Plan Departure Patient Disposition: Home Clinical Impression: Upper respiratory virus Instructions: DI for Viral Upper Respiratory Infection -- Adult Activity Restrictions/Additional Instructions: *You have been diagnosed with [viral upper respiratory infection. As we discussed your history and physical exam are most consistent with a viral upper respiratory infection. Your chest x-ray shows no sign pneumonia that would respond to antibiotics and has been interpreted by Radiology.] *What to do: *Please continue to take your regular medications as directed. [x ] New medication prescriptions sent to your pharmacy: [ [facility]] [ ] New medication written as a paper prescription [ ] No new medications given *Please follow up with your primary care provider in 2-3 days, call for an appointment. Let them know you were seen in the Emergency Department and that we ask that you be seen in follow up. We will electronically transmit a record of today's note if your PCP is in our system *If you do not have a primary care provider please contact the [facility] Resource line at [phone]. They will ask some questions about your medical history and help get you set up with a doctor in the community. *Return to Emergency Department if you should have any new, worsening or concerning symptoms, such as [fever greater than 101 F, shaking chills, worsening pain, persistent vomiting or other bothersome symptoms] Prescriptions: New cyclobenzaprine 10 mg tablet 10 mg PO TID PRN (Reason: muscle spasm) Qty: 14 0RF promethazine-codeine 6.25-10 mg/5 mL syrup 5 ml PO Q4-6H PRN (Reason: cough) Qty: 473 0RF lidocaine [Lidoderm] 5 % adhesive patch,medicated 1 patch TOP DAILY Qty: 15 0RF Rx Instructions: leave on most painful area for 12 hrs ondansetron 4 mg tablet,disintegrating 4 mg PO TID-QID PRN (Reason: nausea and vomiting) Qty: 10 0RF No Action sertraline [Zoloft] 50 mg tablet 50 mg PO DAILY prednisone 20 mg tablet 20 mg PO DAILY Qty: 5 0RF Rx Instructions: administer with food or milk epinephrine [EpiPen 2-Jewel] 0.3 mg/0.3 mL auto-injector 0.3 mg IM Q5-15M PRN (Reason: anaphylaxis) Qty: 2 0RF Rx Instructions: do not exceed 3 doses per episode hydrocodone-acetaminophen 5-325 mg tablet 1 tab PO Q6H PRN (Reason: pain) Qty: 10 0RF epinephrine [EpiPen] 0.3 mg/0.3 mL auto-injector 0.3 mg IM Q15M PRN (Reason: anaphylaxis) Qty: 1 0RF Rx Instructions: until response Referrals: Last Rico MD [Primary Care Provider] - Visit Report Forms: Patient Portal/API
[2022-05-08] MEDS: ACETAMINOPHEN/CODEINE SOLN 5 ML SOLUTION PO (04:15)
[2022-05-08] MEDS: LIDOCAINE PATCH 1 EACH ADH..PATCH TOP (04:15)
[2022-05-08] MEDS: CYCLOBENZAPRINE 10 MG PREPACK 1 BOTTLE MISC (04:15)
[2022-05-08] MEDS: ALBUTEROL HFA PREPACK 1 BOX MISC (04:15)
[2022-05-08 04:28] LABS: Adenovirus Not Detected (Not Detect); B. parapertussis Not Detected (Not Detecte); Bordetella pertussis Not Detected (Not Detecte); Chlamydophila pneumoniae Not Detected (Not Detect); Coronavirus 229E Not Detected (Not Detect); Coronavirus HKU1 Not Detected (Not Detect); Coronavirus NL 63 Not Detected (Not Detect); Coronavirus OC43 Not Detected (Not Detect); Human Metapneumovirus Not Detected (Not Detect); Human Rhinovirus/Enterovirus Not Detected (Not Detect); Influenza A Not Detected (Not Detect); Influenza B Not Detected (Not Detect); Mycoplasma pneumoniae Not Detected (Not Detect); Parainfluenza Virus 1 Not Detected (Not Detect); Parainfluenza Virus 2 Not Detected (Not Detect); Parainfluenza Virus 3 Not Detected (Not Detect); Parainfluenza Virus 4 Not Detected (Not Detect); Respiratory Syncytial Virus Not Detected (Not Detect); SARS- CoV-2 Not Detected (Not Detecte)
[2022-05-08 04:31] VITALS: BP 178/95; PULSE 90; RESP 18; O2SAT 98
== END 2022-05-08 04:33 | disposition home or self-care (01) ==
PROVIDERS: Emergency Provider Emergency Medicine; PCP Family Medicine
DX: J06.9 Acute upper respiratory infection, unspecified (principal); R05.9 Cough, unspecified; Z20.822 Contact with and (suspected) exposure to COVID-19
CPT/HCPCS: 71046; 81003; 81025; 87633; 94640; 99283; 99284

== ENCOUNTER 2023-10-03 20:10 | Emergency (ER) | payer OTHER, SELFPAY ==
[2020-04-26 13:12] VITALS: BMI 37.4
[2023-10-03 20:26] VITALS: BP 131/92; PULSE 77; RESP 16; TEMP 36.7; O2SAT 98; BMI 37.3
--- NOTE | 2023-10-03 22:57 | ED_ITS ---
HPI - Skin/Abscess/Foreign Bdy General Chief complaint: Skin/Abscess/Foreign Body Stated complaint: cyst under breast into the armpit Time Seen by Provider: 10/03/23 22:56 Source: patient Mode of arrival: Ambulatory Limitations: no limitations History of Present Illness HPI narrative: 38-year-old female on Ozempic for weight loss who presents with complaint of drainage and pain under the right breast patient states she has not really noticed any issues but she had noticed little irritation lifted up her breasts and had some brownish discolored drainage felt a pop and then noticed she has some redness and induration of the right breast. Patient is not lactating, she has not been breast-feeding. Has not had infections or abscess on her breast before. She states she had really had any issues she has been doing a lot of yoga and states she gets warm and will have little tiny abscesses but do not require any intervention. She states she was not having pain fevers or other symptoms. Patient denies any other chest pain or shortness of breath. No nausea or vomiting no other GI or urinary symptoms. She has had some small abscesses in the past but rare. Patient states no diabetes, states she is on O zempic for weight loss. States no other medical issues. Had prior abdominal surgeries. No tobacco occasional alcohol, no recreational drugs. Related Data Home Medications Medication Instructions Recorded Confirmed sertraline 50 mg tablet (Zoloft) 50 mg PO DAILY 05/30/20 08/11/20 Previous Rx's Medication Instructions Recorded epinephrine 0.3 mg/0.3 mL 0.3 mg (0.3 mL) IM Q15M PRN 04/10/19 injection, auto-injector (EpiPen) anaphylaxis 3 doses #1 ea epinephrine 0.3 mg/0.3 mL 0.3 mg (0.3 mL) IM Q5-15M PRN 10/29/20 injection, auto-injector (EpiPen anaphylaxis #2 ea 2-Jewel) prednisone 20 mg tablet 20 mg PO DAILY #5 tabs 10/29/20 hydrocodone 5 mg-acetaminophen 325 1 tab PO Q6H PRN pain #10 tabs 12/07/20 mg tablet codeine 10 mg-guaifenesin 200 mg/5 5 ml PO Q4-6H PRN cough #200 mL 05/08/22 mL oral liquid cyclobenzaprine 10 mg tablet 10 mg PO TID PRN muscle spasm #14 05/08/22 tabs lidocaine 5 % topical patch 1 patch topical DAILY #15 ea 05/08/22 (Lidoderm) ondansetron 4 mg disintegrating 4 mg PO TID-QID PRN nausea and 05/08/22 tablet vomiting #10 tabs promethazine 6.25 mg-codeine 10 5 ml PO Q4-6H PRN cough #473 mL 05/08/22 mg/5 mL syrup clindamycin HCl 300 mg capsule 300 mg PO QID #40 caps 10/03/23 tramadol 50 mg tablet 50 mg PO Q6H PRN pain #10 tabs 10/03/23 Allergies Allergy/AdvReac Type Severity Reaction Status Date / Time Penicillins Allergy Verified 10/03/23 20:35 shellfish derived Allergy Verified 10/03/23 20:35 morphine AdvReac Mild itching Verified 10/03/23 20:35 Review of Systems Review of Systems ROS Unobtainable: All systems reviewed & are unremarkable except as noted in HPI and below Patient History Surgical History History of H/O thyroidectomy S/P appendectomy History of cholecystectomy Social History household members: family Smoking Status: Never smoker Smoking Status: Never smoker alcohol intake frequency: holidays/special occasions only Substance Use Type: does not use Exam Narrative Exam Narrative: GENERAL: Alert and oriented x three, well-appearing female in mild distress. HEENT: Head normocephalic, atraumatic, EOMI, pupils reactive, face symmetric, moist mucous membranes NECK: Supple, full range of motion CARDIOVASCULAR: Regular rate and rhythm without murmurs, rubs or gallops. RESPIRATORY: Breath sounds equal bilaterally, no wheezes rales or rhonchi. ABDOMEN: Soft, nontender. Normoactive bowel sounds all 4 quadrants. No guarding or rebound, rigidity, no mass : No CVA tenderness EXTREMITIES: Normal range of motion, no clubbing or edema. Neurovascularly intact NEUROLOGICAL: Cranial nerves II through XII grossly intact. Moving all extremities SKIN: Warm, dry, no petechiae, patient's right breast has about 5 cm area of cellulitis, there is a very small area less than a cm that had opening and clearly drained has not having any active drainage. The area is indurated but without any palpable abscess or fluid collection. Patient has some slight warmth and erythema. The area was marked with a marking pen. Patient is mildly tender. Mild lymphadenopathy in the right axilla. Initial Vital Signs Initial Vital Signs: Vital Signs Temperature 98.1 F 10/03/23 20:26 Pulse Rate 77 10/03/23 20:26 Respiratory Rate 16 10/03/23 20:26 Blood Pressure 131/92 H 10/03/23 20:26 Pulse Oximetry 98 10/03/23 20:26 Oxygen Delivery Method Room Air 10/03/23 20:26 Course Orders Ordered: Discontinued Medications Clindamycin HCl (Clindamycin 150 Mg Capsule) 300 mg PO NOW ONE Stop: 10/03/23 23:13 Last Admin: 10/03/23 23:35 Dose: 300 mg Documented By: BRAEDEN Tramadol HCl (Tramadol 50 Mg Prepack) 1 bottle MISC DIRECTED ONE Stop: 10/03/23 23:13 Last Admin: 10/03/23 23:35 Dose: 1 bottle Documented By: BRAEDEN Vital Signs Vital signs: Vital Signs - 8 hr 10/03/23 20:26 10/03/23 23:40 Temperature 98.1 F 98.8 F Pulse Rate 77 67 Respiratory Rate 16 16 Blood Pressure 131/92 H 137/87 Pulse Oximetry 98 97 Oxygen Delivery Method Room Air Room Air MDM - Skin/Abscess/Foreign Bdy MDM Narrative Medical decision making narrative: 38-year-old female Ozempic but no reported diabetes who has what appears to be cellulitis and a very small abscess that is drained. Plan to start patient on oral antibiotics area was marked with strict return precautions. Patient o therwise did not appear to be septic and appears well overall. Discussed need for follow up to make sure complete resolution. We did discuss obtaining ultrasound but patient was comfortable deferring. Patient's initial dose of antibiotic here, prepack for pain medication. Discharge Plan Departure Patient Disposition: Home Clinical Impression: Cellulitis of right breast, Abscess of breast, right Activity Restrictions/Additional Instructions: You appear to have not very small abscess which is already draining with surrounding cellulitis in your right breast. Please follow-up with primary care for rechecked to make sure you have complete resolution of the infection changes. Use warm compresses to the affected area or hot showers or hot baths 4 times daily at least 10-15 minutes. You may take Tylenol up to a 1000 mg and/or ibuprofen up to 600 mg every 6 hours. You may take pain medication 1 tablet every 6 hours as needed. This medication can make you sleepy do not drive, perform hazardous activities or make any major decisions while taking it. This medication will make you constipated please take a stool softener once to twice daily until stools are soft and regular. Take antibiotics until completed. Prescriptions were sent to [facility] in [place]. The area on your breast was marked if redness or swelling is extending more than 1-2 cm beyond this, if you are developing fevers, increasing pain, increasing drainage, new or worsening chest pain or shortness of breath, nausea or vomiting or other new or concerning changes please return for recheck. Prescriptions: New clindamycin HCl 300 mg capsule 300 mg PO QID Qty: 40 0RF tramadol 50 mg tablet 50 mg PO Q6H PRN (Reason: pain) Qty: 10 0RF No Action sertraline [Zoloft] 50 mg tablet 50 mg PO DAILY prednisone 20 mg tablet 20 mg PO DAILY Qty: 5 0RF Rx Instructions: administer with food or milk epinephrine [EpiPen 2-Jewel] 0.3 mg/0.3 mL auto-injector 0.3 mg IM Q5-15M PRN (Reason: anaphylaxis) Qty: 2 0RF Rx Instructions: do not exceed 3 doses per episode hydrocodone-acetaminophen 5-325 mg tablet 1 tab PO Q6H PRN (Reason: pain) Qty: 10 0RF cyclobenzaprine 10 mg tablet 10 mg PO TID PRN (Reason: muscle spasm) Qty: 14 0RF promethazine-codeine 6.25-10 mg/5 mL syrup 5 ml PO Q4-6H PRN (Reason: cough) Qty: 473 0RF lidocaine [Lidoderm] 5 % adhesive patch,medicated 1 patch TOP DAILY Qty: 15 0RF Rx Instructions: leave on most painful area for 12 hrs ondansetron 4 mg tablet,disintegrating 4 mg PO TID-QID PRN (Reason: nausea and vomiting) Qty: 10 0RF codeine-guaifenesin 10-200 mg/5 mL liquid 5 ml PO Q4-6H PRN (Reason: cough) Qty: 200 0RF epinephrine [EpiPen] 0.3 mg/0.3 mL auto-injector 0.3 mg IM Q15M PRN (Reason: anaphylaxis) Qty: 1 0RF Rx Instructions: until response Referrals: Last Rico MD [Primary Care Provider] - Stand Alone Forms: Patient Portal/API
[2023-10-03] MEDS: CLINDAMYCIN 150 MG CAPSULE 300 MG PO (23:35)
[2023-10-03] MEDS: TRAMADOL 50 MG PREPACK 1 BOTTLE MISC (23:35)
[2023-10-03 23:40] VITALS: BP 137/87; PULSE 67; RESP 16; TEMP 37.1; O2SAT 97
== END 2023-10-03 23:40 | disposition home or self-care (01) ==
PROVIDERS: Emergency Provider Emergency Medicine; PCP Family Medicine
DX: N61.1 Abscess of the breast and nipple (principal)
CPT/HCPCS: 99283

== ENCOUNTER 2023-12-22 08:06 | Emergency (ER) | payer OTHER, SELFPAY ==
[2020-04-26 13:12] VITALS: BMI 37.4
[2023-12-22 08:23] VITALS: BP 120/86; PULSE 81; RESP 18; TEMP 35.6; O2SAT 99; BMI 34.4
--- NOTE | 2023-12-22 08:25 | ED.GENADULT ---
HPI - General Adult General Chief complaint: Skin/Abscess/Foreign Body Stated complaint: L breast blister and bleeding Time Seen by Provider: 12/22/23 08:08 Source: patient Mode of arrival: Ambulatory Limitations: no limitations History of Present Illness HPI narrative: 38-year-old female who is here for evaluation of a lesion on her left breast. She states that last night she started noticing a bump on her left breast but this morning when she woke up it had ?erupted? and started having some bleeding. She states that it is tender to the touch. She had similar symptoms on her right breast that would come and go. She states she was treated with the antibiotics and since that time it has gone away. She was supposed to follow-up with general surgery but because the symptoms completely went away she never followed through with this. She denies any fevers. No nipple discharge. She has not . No trauma. Related Data Home Medications Medication Instructions Recorded Confirmed sertraline 50 mg tablet (Zoloft) 50 mg PO DAILY 05/30/20 08/11/20 Previous Rx's Medication Instructions Recorded epinephrine 0.3 mg/0.3 mL 0.3 mg (0.3 mL) IM Q15M PRN 04/10/19 injection, auto-injector (EpiPen) anaphylaxis 3 doses #1 ea epinephrine 0.3 mg/0.3 mL 0.3 mg (0.3 mL) IM Q5-15M PRN 10/29/20 injection, auto-injector (EpiPen anaphylaxis #2 ea 2-Jewel) prednisone 20 mg tablet 20 mg PO DAILY #5 tabs 10/29/20 hydrocodone 5 mg-acetaminophen 325 1 tab PO Q6H PRN pain #10 tabs 12/07/20 mg tablet codeine 10 mg-guaifenesin 200 mg/5 5 ml PO Q4-6H PRN cough #200 mL 05/08/22 mL oral liquid cyclobenzaprine 10 mg tablet 10 mg PO TID PRN muscle spasm #14 05/08/22 tabs lidocaine 5 % topical patch 1 patch topical DAILY #15 ea 05/08/22 (Lidoderm) ondansetron 4 mg disintegrating 4 mg PO TID-QID PRN nausea and 05/08/22 tablet vomiting #10 tabs promethazine 6.25 mg-codeine 10 5 ml PO Q4-6H PRN cough #473 mL 05/08/22 mg/5 mL syrup clindamycin HCl 300 mg capsule 300 mg PO QID #40 caps 10/03/23 tramadol 50 mg tablet 50 mg PO Q6H PRN pain #10 tabs 10/03/23 cephalexin 500 mg capsule 500 mg PO QID 7 days #28 caps 12/22/23 Allergies Allergy/AdvReac Type Severity Reaction Status Date / Time Penicillins Allergy Verified 10/03/23 20:35 shellfish derived Allergy Verified 10/03/23 20:35 morphine AdvReac Mild itching Verified 10/03/23 20:35 Review of Systems Integumentary/Breasts Skin/Breast: Reports system reviewed and no additional complaints, except as documented Allergic/Immunologic Allergic/Immunologic: Reports system reviewed and no additional complaints, except as documented Patient History Surgical History History of H/O thyroidectomy S/P appendectomy History of cholecystectomy Social History household members: family Smoking Status: Never smoker Smoking Status: Never smoker alcohol intake frequency: holidays/special occasions only Substance Use Type: does not use Exam Skin Other: Patient is a 1 cm x 1 cm skin eruption on the left breast at the 9 o'clock position. There is a 2 cm round induration under this. There was no drainage. No vesicles. No pustules. No nipple discharge. No axillary lymphadenopathy. Medical Decision Making MDM Narrative Medical decision making narrative: Bedside ultrasound does not show a deep fluid collection. She does have a lesion on her left breast that earlier today was draining blood but not currently. No fevers. No lymphadenopathy. Had a long discussion with the patient. There is obviously some concern about malignancy although this is probably unlikely given the fact that that has developed over the past 12-24 hours. It sounds like her right breast had cysts that seem to come and go but that has been a long time ago. There was no indication for an incision and drainage. Plan will be is to put her on antibiotics to see if her symptoms improve as this seemed to have helped in the past. She does need follow-up with general surgery. Patient expressed understanding and agreement with plan. Discharge Plan Departure Patient Disposition: Home Clinical Impression: Breast lesion Activity Restrictions/Additional Instructions: You can take Tylenol and or ibuprofen for any discomfort. You can shower like normal. Recommend that you take the antibiotics as directed. I do recommend that you follow-up with your primary doctor and also with General surgery. You can contact them with the number provided below however you may need a referral from your primary doctor. Return to the emergency department for new or worsening symptoms. Prescriptions: New cephalexin 500 mg capsule 500 mg PO QID 7 Days Qty: 28 0RF No Action sertraline [Zoloft] 50 mg tablet 50 mg PO DAILY prednisone 20 mg tablet 20 mg PO DAILY Qty: 5 0RF Rx Instructions: administer with food or milk epinephrine [EpiPen 2-Jewel] 0.3 mg/0.3 mL auto-injector 0.3 mg IM Q5-15M PRN (Reason: anaphylaxis) Qty: 2 0RF Rx Instructions: do not exceed 3 doses per episode hydrocodone-acetaminophen 5-325 mg tablet 1 tab PO Q6H PRN (Reason: pain) Qty: 10 0RF cyclobenzaprine 10 mg tablet 10 mg PO TID PRN (Reason: muscle spasm) Qty: 14 0RF promethazine-codeine 6.25-10 mg/5 mL syrup 5 ml PO Q4-6H PRN (Reason: cough) Qty: 473 0RF lidocaine [Lidoderm] 5 % adhesive patch,medicated 1 patch TOP DAILY Qty: 15 0RF Rx Instructions: leave on most painful area for 12 hrs ondansetron 4 mg tablet,disintegrating 4 mg PO TID-QID PRN (Reason: nausea and vomiting) Qty: 10 0RF codeine-guaifenesin 10-200 mg/5 mL liquid 5 ml PO Q4-6H PRN (Reason: cough) Qty: 200 0RF clindamycin HCl 300 mg capsule 300 mg PO QID Qty: 40 0RF tramadol 50 mg tablet 50 mg PO Q6H PRN (Reason: pain) Qty: 10 0RF epinephrine [EpiPen] 0.3 mg/0.3 mL auto-injector 0.3 mg IM Q15M PRN (Reason: anaphylaxis) Qty: 1 0RF Rx Instructions: until response Referrals: Carlitos Ortega MD [Physician] - Last Rico MD [Primary Care Provider] - Stand Alone Forms: Patient Portal/API
[2023-12-22 08:33] VITALS: BP 120/86; PULSE 81; RESP 18; O2SAT 99
== END 2023-12-22 08:44 | disposition home or self-care (01) ==
PROVIDERS: Emergency Provider Emergency Medicine; PCP Family Medicine
DX: N64.9 Disorder of breast, unspecified (principal)
CPT/HCPCS: 99281